=== PATIENT | male | born 1970 | race Caucasian/White ===

== ENCOUNTER 2017-02-13 11:47 | Emergency (ER) | payer SELFPAY ==
[~2017-02-13] VITALS: Ht 160 cm; Wt 67.6 kg
--- NOTE | 2017-02-13 11:48 | NUR ---
PT BIB FRIEND C/O BILATERAL UPPER AND LOWER EXTREMITIES PITTING EDEMA. +ETOH DRUNK . AMBULATORY STEADY GAIT. PLACED ON MONITOR. VSS. AWAITING MD ORDER
--- NOTE | 2017-02-13 12:15 | NUR ---
Was seen independently by myself. Subjective: Patient presents with chronic lower extremity swelling and upper extremity swelling in the setting of a patient of his alcohol everyday. Objective: Patient is drunk. He has 2+ edema both lower extremities with no evidence of obvious congestive heart failure Assessment/plan: Patient will have labs checked with likely outpatient followup for alcohol related concerns with possible diuretic.
--- NOTE | 2017-02-13 12:26 | NUR ---
LAC #18 IV ACCESS. BLOOD SAMPLE COLLECTED SENT TO LAB
[2017-02-13 12:28] LABS: BASOPHILS % (AUTO) 0.4 % (0.0-2.0); EOSINOPHILS # (AUTO) 0.2 /CMM (0.0-0.7); EOSINOPHILS % (AUTO) 3.7 % (0.0-6.0); HEMATOCRIT 38 % (39-51); HEMOGLOBIN 13.3 g/dL (13.5-17.5); LYMPHOCYTES % (AUTO) 42.1 % (20.0-44.0); MEAN CORPUSCULAR HEMOGLOBIN 33 PG (26.0-33.0); MEAN CORPUSCULAR HGB CONC 35 g/dl (31.0-36.0); MEAN CORPUSCULAR VOLUME 96 fL (80-96); MONOCYTES # (AUTO) 0.6 /CMM (0.1-1.30); MONOCYTES % (AUTO) 11.7 % (2.0-12.0); NEUTROPHILS % (AUTO) 42.1 % (43.0-81.0); PLATELET COUNT (AUTO) 159 /CMM (150-450); RDW COEFFICIENT OF VARIATION 13.1 (11.5-15.0); RED BLOOD CELL COUNT(AUTO) 3.98 MIL/uL (4.5-6.0); WHITE BLOOD COUNT (AUTO) 4.8 K/uL (4.3-11.0)
--- NOTE | 2017-02-13 12:35 | NUR ---
URINE SAMPLE COLLECTED SENT TO LAB
[2017-02-13 12:39] LABS: CALCIUM, SERUM 8.7 mg/dL (8.5-10.1); CREATININE 0.6 mg/dL (0.6-1.3)
[2017-02-13 12:45] LABS: ALBUMIN 4.1 g/dL (3.4-5.0); BILIRUBIN,DIRECT 0.1 mg/dL (0.0-0.2); BILIRUBIN,TOTAL 0.3 mg/dL (0.2-1.0); TOTAL PROTEIN, SERUM 8.3 g/dL (6.4-8.2)
[2017-02-13 12:48] LABS: INR 0.96 (0.87-1.13); PROTHROMBIN TIME 10.3 SECS (9.5-12.7)
[2017-02-13] MEDS ORDERED: FUROSEMIDE 20 MG TABLET ONE ×2 (12:57→13:01)
--- NOTE | 2017-02-13 13:07 | NUR ---
Patient discharged to home in stable condition. Written and verbal after care instructions given. Patient verbalizes understanding of instruction. IV removed. Catheter intact and site benign. Pressure and 4x4 applied to site. No bleeding noted. AMBULATORY WITH STEADY GAIT. NAD NOTED. FIRST DOSE OF LASIX GIVEN ORDERED. THOROUGH INSTRUCTIONS REVIEWED WITH PT WITH CONTAINER PACKER OPERATOR.
[2017-02-13 13:09] VITALS: BP 139/86
[2017-02-13 13:20] LABS: APPEARANCE,URINE Clear (CLEAR); BILIRUBIN,URINE Negative (NEGATIVE); BLOOD, URINE Trace-lysed Ery/uL (NEGATIVE); COLOR,URINE Yellow (YELLOW); KETONES,URINE Negative (NEGATIVE); LEUKOCYTE ESTERASE ,URINE Negative (NEGATIVE); NITRITE, URINE Negative (NEGATIVE); PH,URINE 5.5 (5.0-8.0); PROTEIN,URINE Trace mg/dl (NEGATIVE); UGLUCOSE Negative (NEGATIVE); UROBILINOGEN,URINE 0.2 EU/dL (0.2)
[2017-02-13] MEDS ORDERED: FUROSEMIDE 20 MG TABLET PO ONE (13:30)
[2017-02-13 13:36] LABS: ADD URINE CULTURE NO; BACTERIA,URINE Rare /HPF (None Seen); RBC,URINE 0-2 /HPF (0-2); SQUAMOUS EPITHELIAL CELL,UR Rare /HPF (None Seen); WBC,URINE 0-2 /HPF (0-3)
== END 2017-02-13 13:10 | disposition home or self-care (01) ==
LOC: EDUNIT# 11:47 → EDBD 11:51 → ER 11:51
DX: R60.0 Localized edema (principal); I50.9 Heart failure, unspecified; F10.10 Alcohol abuse, uncomplicated
CPT/HCPCS: 36415; 71010; 80048; 80076; 81001; 85025; 85730; 93005; 99285; A4606; Z7610; 81000-TC

== ENCOUNTER 2017-02-21 14:59 | Emergency (ER) | payer SELFPAY ==
[~2017-02-21] VITALS: Ht 157.5 cm; Wt 72.6 kg
[2017-02-21] MEDS ORDERED: AMOX/CLAVULANATE 875 MG TABLET ONE (15:31)
[2017-02-21 15:41] VITALS: BP 145/81
== END 2017-02-21 16:13 | disposition home or self-care (01) ==
LOC: ER 15:01
DX: R20.8 Other disturbances of skin sensation (principal); I10 Essential (primary) hypertension; F17.200 Nicotine dependence, unspecified, uncomplicated
CPT/HCPCS: 99281; A4606; Z7610; Z7502

== ENCOUNTER 2017-03-18 06:24 | Emergency (ER) | payer SELFPAY ==
[~2017-03-18] VITALS: Ht 165.1 cm; Wt 64.4 kg
[2017-03-18] MEDS ORDERED: IBUPROFEN 400 MG TABLET ONE (06:47)
--- NOTE | 2017-03-18 06:49 | NUR ---
PT IS REFUSING ALL TREATMENT. DR. KATZ IS AWARE.
[2017-03-18 06:59] VITALS: BP 153/114
[2017-03-18] MEDS ORDERED: IBUPROFEN 400 MG TABLET PO ONE (07:00)
[2017-03-18] MEDS ORDERED: IV NS 0.9% 500 ML BAG IV ONE (07:00)
== END 2017-03-18 07:02 | disposition home or self-care (01) ==
LOC: ER 06:26
DX: M79.89 Other specified soft tissue disorders (principal); I10 Essential (primary) hypertension; F17.200 Nicotine dependence, unspecified, uncomplicated
CPT/HCPCS: A4606; Z7610

== ENCOUNTER 2017-04-24 22:30 | Emergency (ER) | payer SELFPAY ==
[~2017-04-24] VITALS: Ht 172.7 cm; Wt 86.2 kg
[2017-04-24 23:33] VITALS: BP 142/81
--- NOTE | 2017-04-24 23:45 | NUR ---
CALLED PATIENTS NAME NOT IN WAITING ROOM
--- NOTE | 2017-04-25 00:05 | NUR ---
CALLED PATIENTS NAME NOT IN WAITING ROOM
--- NOTE | 2017-04-25 02:35 | NUR ---
PATIENT LEFT WITHOUT BEING SEEN
== END 2017-04-25 02:36 | disposition left against medical advice (07) ==
LOC: ER 22:31
DX: Z53.21 Procedure and treatment not carried out due to patient leaving prior to being seen by health care provider (principal)
CPT/HCPCS: A4606; Z7610

== ENCOUNTER 2017-09-10 15:02 | Emergency (ER) | payer MEDICAID ==
[~2017-09-10] VITALS: Ht 157.5 cm; Wt 81.6 kg
[2017-09-10 15:31] VITALS: BP 143/88
[2017-09-10 16:05] LABS: BASOPHILS # (AUTO) 0.1 /CMM (0.0-0.2); BASOPHILS % (AUTO) 1.1 % (0.0-2.0); EOSINOPHILS # (AUTO) 0.2 /CMM (0.0-0.7); EOSINOPHILS % (AUTO) 2.4 % (0.0-6.0); HEMATOCRIT 34 % (39-51); HEMOGLOBIN 11.9 g/dL (13.5-17.5); LYMPHOCYTES # (AUTO) 1.8 /CMM (0.8-4.8); LYMPHOCYTES % (AUTO) 24.7 % (20.0-44.0); MEAN CORPUSCULAR HEMOGLOBIN 35 PG (26.0-33.0); MEAN CORPUSCULAR HGB CONC 35 g/dl (31.0-36.0); MEAN CORPUSCULAR VOLUME 100 fL (80-96); MONOCYTES # (AUTO) 0.6 /CMM (0.1-1.30); MONOCYTES % (AUTO) 8.5 % (2.0-12.0); NEUTROPHILS # (AUTO) 4.7 /CMM (1.8-8.9); NEUTROPHILS % (AUTO) 63.3 % (43.0-81.0); PLATELET COUNT (AUTO) 151 /CMM (150-450); RED BLOOD CELL COUNT(AUTO) 3.41 MIL/uL (4.5-6.0); WHITE BLOOD COUNT (AUTO) 7.4 K/uL (4.3-11.0)
[2017-09-10 16:11] LABS: CALCIUM, SERUM 8.9 mg/dL (8.5-10.1); CARBON DIOXIDE 27 mmol/L (21-32); CHLORIDE 104 mmol/L (98-107); CREATININE 0.5 mg/dL (0.6-1.3); GLUCOSE 111 mg/dL (74-106); POTASSIUM 3.7 mmol/L (3.5-5.1); SODIUM SERUM 142 mmol/L (136-145); UREA NITROGEN, BLOOD 5 mg/dL (7-18)
[2017-09-10 16:16] LABS: INR 0.95 (0.87-1.13); PROTHROMBIN TIME 9.9 SECS (9.5-12.7)
[2017-09-10 16:20] LABS: TROPONIN I < 0.017 ng/mL (0.00-0.056)
== END 2017-09-10 16:50 | disposition home or self-care (01) ==
LOC: ER 15:05
DX: R53.1 Weakness (principal); I10 Essential (primary) hypertension; F17.200 Nicotine dependence, unspecified, uncomplicated; R79.1 Abnormal coagulation profile
CPT/HCPCS: 36415; 71010; 80048; 84484; 85025; 85730; 93005; 99285; A4606; Z7610

== ENCOUNTER 2017-10-07 14:20 | Emergency (ER) | payer MEDICAID ==
[~2017-10-07] VITALS: Ht 165.1 cm; Wt 68.0 kg
--- NOTE | 2017-10-07 14:20 | NUR ---
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 WEAKNESS AND TINGLING FEELING HEAD PALPITATIONS, NAD NOTED, VSS, PT PUT ON HOSPITAL GOWN, AND MONITOR. WAITING FOR MD SANDOVAL
--- NOTE | 2017-10-07 14:54 | NUR ---
PT TO CTSCAN
[2017-10-07 14:58] LABS: CALCIUM, SERUM 8.6 mg/dL (8.5-10.1); CARBON DIOXIDE 27 mmol/L (21-32); CHLORIDE 98 mmol/L (98-107); CREATININE 0.5 mg/dL (0.6-1.3); GLUCOSE 133 mg/dL (74-106); POTASSIUM 3.4 mmol/L (3.5-5.1); SODIUM SERUM 134 mmol/L (136-145); UREA NITROGEN, BLOOD 4 mg/dL (7-18)
[2017-10-07 15:01] LABS: INR 0.95 (0.87-1.13); PROTHROMBIN TIME 9.9 SECS (9.5-12.7)
[2017-10-07 15:06] LABS: TROPONIN I < 0.017 ng/mL (0.00-0.056)
[2017-10-07 15:07] LABS: BASOPHILS # (AUTO) 0.1 /CMM (0.0-0.2); BASOPHILS % (AUTO) 1.8 % (0.0-2.0); EOSINOPHILS # (AUTO) 0.2 /CMM (0.0-0.7); EOSINOPHILS % (AUTO) 3.7 % (0.0-6.0); HEMATOCRIT 35 % (39-51); HEMOGLOBIN 11.9 g/dL (13.5-17.5); LYMPHOCYTES # (AUTO) 2.3 /CMM (0.8-4.8); LYMPHOCYTES % (AUTO) 38.5 % (20.0-44.0); MEAN CORPUSCULAR HEMOGLOBIN 34 PG (26.0-33.0); MEAN CORPUSCULAR HGB CONC 34 g/dl (31.0-36.0); MEAN CORPUSCULAR VOLUME 101 fL (80-96); MONOCYTES # (AUTO) 0.7 /CMM (0.1-1.30); MONOCYTES % (AUTO) 11.9 % (2.0-12.0); NEUTROPHILS # (AUTO) 2.6 /CMM (1.8-8.9); NEUTROPHILS % (AUTO) 44.1 % (43.0-81.0); PLATELET COUNT (AUTO) 175 /CMM (150-450); RDW COEFFICIENT OF VARIATION 12.3 (11.5-15.0); RED BLOOD CELL COUNT(AUTO) 3.49 MIL/uL (4.5-6.0)
[2017-10-07 16:24] LABS: ALBUMIN 3.9 g/dL (3.4-5.0); BILIRUBIN,DIRECT 0.1 mg/dL (0.0-0.2); BILIRUBIN,TOTAL 0.4 mg/dL (0.2-1.0); TOTAL PROTEIN, SERUM 8.2 g/dL (6.4-8.2)
[2017-10-07 16:35] VITALS: BP 127/70
--- NOTE | 2017-10-07 16:40 | NUR ---
Patient discharged to home in stable condition. Written and verbal after care instructions given. Patient verbalizes understanding of instruction.IV removed. Catheter intact and site benign. Pressure and 4x4 applied to site. No bleeding noted.
== END 2017-10-07 16:37 | disposition home or self-care (01) ==
LOC: ER 14:25
DX: R53.1 Weakness (principal); R00.2 Palpitations; R51 Headache; H53.8 Other visual disturbances; F10.10 Alcohol abuse, uncomplicated; R79.1 Abnormal coagulation profile; I10 Essential (primary) hypertension; F17.200 Nicotine dependence, unspecified, uncomplicated
CPT/HCPCS: 36415; 70450; 71010; 80048; 80076; 82962; 84484; 85025; 85730; 93005; 99285; A4606; Z7610

== ENCOUNTER 2017-12-30 18:31 | Emergency (ER) | payer MEDICAID ==
[~2017-12-30] VITALS: Ht 172.7 cm; Wt 77.1 kg
--- NOTE | 2017-12-30 19:28 | NUR ---
CALLED NO ANSWER IN LOBBY
[2017-12-30 19:31] VITALS: BP 142/75
== END 2017-12-30 23:24 | disposition left against medical advice (07) ==
LOC: ER 18:33
DX: Z53.21 Procedure and treatment not carried out due to patient leaving prior to being seen by health care provider (principal)
CPT/HCPCS: A4606; Z7610

== ENCOUNTER 2018-01-31 12:26 | Emergency (ER) | payer MEDICAID ==
[~2018-01-31] VITALS: Ht 167.6 cm; Wt 66.7 kg
[2018-01-31 12:51] VITALS: BP 154/107
[2018-01-31] MEDS ORDERED: ONDANSETRON 4 MG TAB.RAPDIS ONE (13:11)
[2018-01-31] MEDS ORDERED: ONDANSETRON 4 MG TAB.RAPDIS SL ONE (13:30)
== END 2018-01-31 13:39 | disposition home or self-care (01) ==
LOC: ER 12:27
DX: R11.2 Nausea with vomiting, unspecified (principal); I10 Essential (primary) hypertension; F10.10 Alcohol abuse, uncomplicated; F17.200 Nicotine dependence, unspecified, uncomplicated
CPT/HCPCS: 99282; A4606; Q0162; Z7610

== ENCOUNTER 2018-03-18 00:17 | Inpatient (IN) | payer MEDICAID ==
[~2018-03-18] VITALS: Ht 162.6 cm; Wt 59.0 kg
--- NOTE | 2018-03-18 00:23 | NUR ---
PT TO ER BED 14. BIB RA C/O SYNCOPE W/GLF BITTING TONGUE. UNKNOWN IF PT HIT HIS HEAD. PT PLACED IN GOWN AND ON COMMANDING OFFICER MOTORIZED SQUAD. VSS/RESP EVEN UNLABORED/NAD NOTED/SKIN WARM AND DRY/DENIES N-V-D/ AFEBRILE/AOX4. AWAITING MD SANDOVAL.
--- NOTE | 2018-03-18 00:40 | NUR ---
AT BEDSIDE FOR EVAL.
--- NOTE | 2018-03-18 00:55 | NUR ---
18G IV TO L AC X 1 ATTEMPT USING ASEPTIC TECH, BLOOD HANDED OVER TO THE LAB AT BEDSIDE. IV FLUSHES EASILY WITH NS, NO S/S OF INFILTRATION NOTED.
--- NOTE | 2018-03-18 00:58 | NUR ---
PT TO CT VIA SARAH MIRZA.
[2018-03-18] MEDS ORDERED: IV NS 0.9% 500 ML BAG IV ONE (01:00)
[2018-03-18] MEDS ORDERED: ONDANSETRON HCL/PF 4 MG/2 ML VIAL IVP ONE (01:00)
[2018-03-18] MEDS ORDERED: ONDANSETRON HCL/PF 4 MG/2 ML VIAL ONE (01:08)
[2018-03-18 01:21] LABS: BASOPHILS % (AUTO) 0.1 % (0.0-2.0); EOSINOPHILS % (AUTO) 0.1 % (0.0-6.0); HEMATOCRIT 31 % (39-51); HEMOGLOBIN 10.9 g/dL (13.5-17.5); LYMPHOCYTES # (AUTO) 0.4 /CMM (0.8-4.8); MEAN CORPUSCULAR HGB CONC 36 g/dl (31.0-36.0); MEAN CORPUSCULAR VOLUME 97 fL (80-96); MONOCYTES # (AUTO) 1.1 /CMM (0.1-1.30); MONOCYTES % (AUTO) 12.4 % (2.0-12.0); NEUTROPHILS # (AUTO) 7.6 /CMM (1.8-8.9); NEUTROPHILS % (AUTO) 83.4 % (43.0-81.0); PLATELET COUNT (AUTO) 116 /CMM (150-450); RDW COEFFICIENT OF VARIATION 11.8 (11.5-15.0); RED BLOOD CELL COUNT(AUTO) 3.15 MIL/uL (4.5-6.0); WHITE BLOOD COUNT (AUTO) 9.1 K/uL (4.3-11.0)
--- NOTE | 2018-03-18 01:21 | NUR ---
EMT AT BEDSIDE FOR EKG.
[2018-03-18 01:27] LABS: INR 1.07 (0.87-1.13)
[2018-03-18 01:33] LABS: TROPONIN I < 0.017 ng/mL (0.00-0.056)
[2018-03-18 01:34] LABS: ALANINE AMINOTRANSFERASE 93 U/L (12-78); ALBUMIN 3.9 g/dL (3.4-5.0); ALKALINE PHOSPHATASE 110 U/L (46-116); ASPARTATE AMINOTRANSFERASE 106 U/L (15-37); BILIRUBIN,DIRECT 0.6 mg/dL (0.0-0.2); BILIRUBIN,TOTAL 2.5 mg/dL (0.2-1.0); CALCIUM, SERUM 9.2 mg/dL (8.5-10.1); CHLORIDE 91 mmol/L (98-107); GLUCOSE 138 mg/dL (74-106); POTASSIUM 3.2 mmol/L (3.5-5.1); SODIUM SERUM 129 mmol/L (136-145); TOTAL PROTEIN, SERUM 7.9 g/dL (6.4-8.2); UREA NITROGEN, BLOOD 15 mg/dL (7-18)
[2018-03-18 01:39] LABS: CARBON DIOXIDE 27 mmol/L (21-32); CREATININE 0.7 mg/dL (0.6-1.3)
--- NOTE | 2018-03-18 02:17 | NUR ---
REPORT GIVEN TO JAMES TORRES FOR ZULEIMA.
[2018-03-18] MEDS ORDERED: AZITHROMYCIN 250 MG TABLET PO SCH (02:30)
[2018-03-18] MEDS ORDERED: CEFTRIAXONE 1GM BAG (ER ONLY) 1 GM/50 ML PIGGYBACK IV ONE (02:30)
[2018-03-18] MEDS ORDERED: CEFTRIAXONE 1 G VIAL ONE (02:44)
[2018-03-18] MEDS ORDERED: AZITHROMYCIN 500 MG VIAL ONE (02:44)
[2018-03-18] MEDS ORDERED: AZITHROMYCIN 500 MG in IV D5W 250 ML IV SCH (03:00)
--- NOTE | 2018-03-18 03:25 | NUR ---
COMMERCIAL DESIGNER NOTE RECEIVED PATIENT FROM ER RECEIVED REPORT FROM NERY, PATIENT IS AOX3, SPEECH CLEAR, SWISS SPEAKING, ON BEDREST, SCROTUM SWELLING, AND LEFT FINGER TAG, LAC #18G, PATENT FLUSHES WELL, NO PAIN REPORTED CURRENTLY, STATES TONGUE SORENESS. 100% ON RA, EDUCATED CERTIFIED MEETING PROFESSIONAL LIGHT USE AND SAFETY, BED ALARMS IN PLACE DUE TO WEAKNESS. SAFETY MAINTAINED AT ALL TIMES BED IN LOW LOCKED POSITION, WILL CONTINUE TO MONITOR FOR ANY CHANGES IN CONDITION.
--- NOTE | 2018-03-18 03:32 | NUR ---
PT TRANSPORTED VIA STRETCHER ON [employer] TO TELE 117-2 WITH RN PER ACLS PROTOCOL. VSS.
[2018-03-18 03:44] VITALS: BP 160/88
[2018-03-18 04:00] VITALS: BP 160/88
[2018-03-18] MEDS ORDERED: ACETAMINOPHEN 650 MG/SUPP.RECT RC PRN (06:30)
[2018-03-18] MEDS ORDERED: ONDANSETRON HCL/PF 4 MG/2 ML VIAL IVP PRN (06:30)
[2018-03-18] MEDS ORDERED: MORPHINE SULFATE INJ 2 MG/ML DISP.SYRIN IV PRN (06:30)
[2018-03-18] MEDS ORDERED: CLONIDINE HCL 0.1 MG TABLET PO PRN (06:30)
--- NOTE | 2018-03-18 07:40 | NUR ---
RN NOTE RECEIVED PATIENT IN BED AWAKE ALERT AND ORIENTED X3, HE IS ABLE TO RESPOND IN HIS [place] LANGUAGE (TAMAZIGHT). HE IS ABLE TO VERBALIZE NEEDS. NO DISTRESS OR DISCOMFORT NOTED AT THIS TIME. ON TRACK REPAIR WORKER SINUS RHYTHM HR OF 78. LEFT AC IV SITE INTACT AND PATENT. HEAD OF BED ELEVATED FOR COMFORT. PROVIDED COMFORT AND SAFETY MEASURES. BED LOW AND LOCKED POSITION. PLACED CALL LIGHT WITHIN REACH. WILL CONTINUE TO MONITOR AND ATTEND PATIENTS NEEDS.
[2018-03-18] MEDS: PANTOPRAZOLE 40 MG TABLET.DR PO SCH (07:41)
[2018-03-18 08:00] VITALS: BP 152/89
[2018-03-18 08:03] LABS: BASOPHILS % (AUTO) 0.2 % (0.0-2.0); EOSINOPHILS % (AUTO) 0.2 % (0.0-6.0); HEMATOCRIT 31 % (39-51); HEMOGLOBIN 11.1 g/dL (13.5-17.5); LYMPHOCYTES # (AUTO) 0.6 /CMM (0.8-4.8); MEAN CORPUSCULAR HGB CONC 36 g/dl (31.0-36.0); MEAN CORPUSCULAR VOLUME 97 fL (80-96); MONOCYTES # (AUTO) 1.1 /CMM (0.1-1.30); MONOCYTES % (AUTO) 13.2 % (2.0-12.0); NEUTROPHILS # (AUTO) 6.7 /CMM (1.8-8.9); NEUTROPHILS % (AUTO) 79.4 % (43.0-81.0); PLATELET COUNT (AUTO) 111 /CMM (150-450); RDW COEFFICIENT OF VARIATION 11.9 (11.5-15.0); RED BLOOD CELL COUNT(AUTO) 3.21 MIL/uL (4.5-6.0); WHITE BLOOD COUNT (AUTO) 8.4 K/uL (4.3-11.0)
[2018-03-18 08:12] LABS: CALCIUM, SERUM 9.2 mg/dL (8.5-10.1); CARBON DIOXIDE 31 mmol/L (21-32); CHLORIDE 97 mmol/L (98-107); CREATININE 0.6 mg/dL (0.6-1.3); GLUCOSE 107 mg/dL (74-106); POTASSIUM 3.1 mmol/L (3.5-5.1); SODIUM SERUM 135 mmol/L (136-145); UREA NITROGEN, BLOOD 10 mg/dL (7-18)
[2018-03-18 08:16] LABS: CHOLESTEROL 240 mg/dL (<200); HDL CHOLESTEROL 141 mg/dL (40-60); LDL 85 mg/dL (0-99); TRIGLYCERIDES 46 mg/dL (30-150)
[2018-03-18 08:18] LABS: TROPONIN I < 0.017 ng/mL (0.00-0.056)
[2018-03-18 08:23] LABS: ALANINE AMINOTRANSFERASE 77 U/L (12-78); ALBUMIN 3.7 g/dL (3.4-5.0); ALKALINE PHOSPHATASE 104 U/L (46-116); ASPARTATE AMINOTRANSFERASE 93 U/L (15-37); BILIRUBIN,TOTAL 1.7 mg/dL (0.2-1.0); LIPASE 273 U/L (73-393); MAGNESIUM 1.7 mg/dL (1.8-2.4); PHOSPHORUS 3.4 mg/dL (2.5-4.9); TOTAL PROTEIN, SERUM 7.6 g/dL (6.4-8.2)
[2018-03-18] MEDS: Magnesium 1GM/D5W 100ML PREMIX 100 ML IV SCH ×2 (10:43→11:44)
[2018-03-18 12:00] VITALS: BP 144/78
[2018-03-18] MEDS ORDERED: POTASSIUM CHLORIDE 20 MEQ POWDER PACKET PO ONE ×2 (13:00)
[2018-03-18 16:00] VITALS: BP 123/75
[2018-03-18] MEDS: LISINOPRIL (5MG) 5 MG TABLET PO SCH (16:27)
--- NOTE | 2018-03-18 18:59 | NUR ---
RN NOTE PATIENT REMAINED STABLE THROUGHOUT SHIFT. NO ACUTE CHANGES OR DISTRESS NOTED. WILL ENDORSE TO NEXT SHIFT TO CONTINUE CONTINUITY OF CARE
[2018-03-18 20:00] VITALS: BP 130/84
--- NOTE | 2018-03-18 20:00 | NUR ---
RN INITIAL NOTE RECEIVED PATIENT IN BED AWAKE ALERT AND ORIENTED X3,TUNISIAN SPEAKING. HE IS ABLE TO VERBALIZE NEEDS. NO DISTRESS OR DISCOMFORT NOTED AT THIS TIME. ON MULTIFOCAL LENS ASSEMBLER SINUS RHYTHM HR OF 78. LEFT AC IV SITE INTACT AND PATENT. HEAD OF BED ELEVATED FOR COMFORT. PROVIDED COMFORT AND SAFETY MEASURES. BED LOW AND LOCKED POSITION. PLACED CALL LIGHT WITHIN REACH. WILL CONTINUE TO MONITOR AND ATTEND PATIENTS NEEDS.
[2018-03-18] MEDS ORDERED: ZOLPIDEM TARTRATE 5 MG TABLET PO PRN (21:00)
[2018-03-19] VITALS: BP 130/84
[2018-03-19] MEDS: CEFTRIAXONE 1 G in IV D5W 50 ML IV SCH (01:20)
[2018-03-19] MEDS ORDERED: AZITHROMYCIN 500 MG in IV D5W 250 ML IV SCH (03:00)
[2018-03-19 04:00] VITALS: BP 150/90
--- NOTE | 2018-03-19 06:51 | NUR ---
RN CLOSING NOTE PATIENT BECAME MORE CONFUSED OVER NIGHT, HE STARTED WONDERING THE NIXON. PT WAS MOVED CLOSER TO RN STATION FOR SAFETY. PT DEVELOPED A RASH ON HANH ARMS. WILL ENDORSE TO NEXT SHIFT TO CONTINUE CONTINUITY OF CARE
[2018-03-19] MEDS: PANTOPRAZOLE 40 MG TABLET.DR PO SCH (07:48)
[2018-03-19 08:00] VITALS: BP 159/86
[2018-03-19] MEDS: LISINOPRIL (5MG) 5 MG TABLET PO SCH (08:02)
[2018-03-19] MEDS: LORAZEPAM INJ 2 MG/ML VIAL IV PRN ×2 (08:05→16:25)
[2018-03-19 08:08] LABS: BASOPHILS # (AUTO) 0.1 /CMM (0.0-0.2); BASOPHILS % (AUTO) 0.9 % (0.0-2.0); EOSINOPHILS % (AUTO) 1.9 % (0.0-6.0); HEMATOCRIT 30 % (39-51); HEMOGLOBIN 10.5 g/dL (13.5-17.5); LYMPHOCYTES # (AUTO) 0.8 /CMM (0.8-4.8); LYMPHOCYTES % (AUTO) 13.5 % (20.0-44.0); MEAN CORPUSCULAR HGB CONC 35 g/dl (31.0-36.0); MEAN CORPUSCULAR VOLUME 98 fL (80-96); MONOCYTES # (AUTO) 0.9 /CMM (0.1-1.30); MONOCYTES % (AUTO) 14.8 % (2.0-12.0); NEUTROPHILS # (AUTO) 4.2 /CMM (1.8-8.9); NEUTROPHILS % (AUTO) 68.9 % (43.0-81.0); PLATELET COUNT (AUTO) 120 /CMM (150-450); RDW COEFFICIENT OF VARIATION 12.2 (11.5-15.0); RED BLOOD CELL COUNT(AUTO) 3.08 MIL/uL (4.5-6.0); WHITE BLOOD COUNT (AUTO) 6.2 K/uL (4.3-11.0)
[2018-03-19 08:24] LABS: CALCIUM, SERUM 8.3 mg/dL (8.5-10.1); CREATININE 0.6 mg/dL (0.6-1.3); MAGNESIUM 1.8 mg/dL (1.8-2.4); PHOSPHORUS 2.4 mg/dL (2.5-4.9); POTASSIUM 3.1 mmol/L (3.5-5.1)
--- NOTE | 2018-03-19 09:00 | NUR ---
RN NOTE RELAYED MESSAGE TO RITA LARIOS ABOUT PATIENT REACTION OF ROCEPHIN ON PATIENT BILATERAL ARMS. AWAITING FOR CALL BACK.
--- NOTE | 2018-03-19 09:53 | NUR ---
RN NOTE RECEIVED PATIENT IN BED AWAKE ALERT AND ORIENTED WITH EPISODES OF CONFUSION AND FORGETFULNESS, HE IS ABLE TO RESPOND IN HIS [place] LANGUAGE (TOGOLESE). NO DISTRESS OR DISCOMFORT NOTED AT THIS TIME. ON LACQUER SHADER SINUS RHYTHM HR OF 83. LEFT AC IV SITE INTACT AND PATENT. HEAD OF BED ELEVATED FOR COMFORT. PROVIDED COMFORT AND SAFETY MEASURES. BED LOW AND LOCKED POSITION. BED ALARM IN PLACE AND WORKING. PLACED CALL LIGHT WITHIN REACH. WILL CONTINUE TO MONITOR AND ATTEND PATIENTS NEEDS.
[2018-03-19] MEDS ORDERED: diphenhydrAMINE HCL 50 MG/ML VIAL IV PRN (10:00)
--- NOTE | 2018-03-19 10:06 | NUR ---
RN NOTE RECEIVED NEW ORDERS BENADRYL 25MG IV Q6H PRN. CARRIED OUT AND NOTED.
--- NOTE | 2018-03-19 10:45 | NUR ---
RN NOTE PATIENT NOTED WITH WITHDRAWALS, PATIENT IS BEING COMBATIVE AND AGGRESSIVE. PATIENT REMOVED HIS IV, NOTIFIED RITA LARIOS WITH NEW ORDER ACUTE MEDICAL SOFT RESTRAINTS FOR BOTH WRIST. WELL RECHECK CIRCULATION, AND REMOVAL OF RESTRAINTS Q2H. WILL CONTINUE TO MONITOR
[2018-03-19] MEDS ORDERED: LORAZEPAM INJ 2 MG/ML VIAL IV ONE (12:00)
[2018-03-19] MEDS ORDERED: POTASSIUM CHLORIDE 20 MEQ POWDER PACKET PO ONE (12:30)
[2018-03-19] MEDS: CHLORDIAZEPOXIDE HCL 25 MG CAPSULE PO SCH ×2 (13:18→20:58)
[2018-03-19] MEDS: FOLIC ACID 1 MG TABLET PO SCH (13:19)
[2018-03-19] MEDS ORDERED: HALOPERIDOL LACTATE INJ 5 MG/ML VIAL IM ONE (13:30)
--- NOTE | 2018-03-19 13:30 | NUR ---
RN NOTE PATIENT STILL NOTED WITH AGGRESSIVENESS, CURRENTLY WITH SOFT RESTRAINTS IN PLACE. REPLAYED PATIENT STATUS TO HERMILA LARIOS, SEEN BY HERMILA LARIOS WITH NEW ORDERS: HALDOL 5MG IM X1, LIBRIUM Q8H ORDERS WERE CARRIED AND NOTED.
--- NOTE | 2018-03-19 13:54 | NUR ---
TRIED TO PERFORM ECHO STUDY BUT PATIENT IS AGGRESSIVE AND UNCOOPERATIVE. PER JOHN (JAMES), TRY TOMORROW.
[2018-03-19] MEDS ORDERED: K PHOS NEUTRAL 250 MG TABLET PO ONE (14:00)
--- NOTE | 2018-03-19 14:30 | NUR ---
RN NOTE AFTER HALDOL IM GIVEN, PATIENT SEEMS RELAXED, CALM, AND ASLEEP. WILL CONTINUE TO MONITOR.
[2018-03-19 16:00] VITALS: BP 131/82
[2018-03-19] MEDS: LACTOBACILLUS RHAMNOSUS GG 1 EACH CAP.SPRINK PO SCH (16:37)
--- NOTE | 2018-03-19 19:19 | NUR ---
RN NOTE PATIENT REMAINED STABLE THROUGHOUT THE REST OF SHIFT. NO EPISODE OF AGGRESSIVENESS OR BEING UNCOOPERATIVE. ECHOCARDIOGRAM WILL BE PERFORMED TOMORROW IN THE AM, THE TECH COULD NOT PREFORM THE ECHO TODAY DUE TO PATENT BEING AGGRESSIVE AND UNCOOPERATIVE. WILL ENDORSE TO NEXT SHIFT TO CONTINUE CONTINUITY OF CARE
[2018-03-19 20:00] VITALS: BP 144/85
[2018-03-19] MEDS ORDERED: HALOPERIDOL LACTATE INJ 5 MG/ML VIAL IM PRN (21:00)
[2018-03-20] VITALS: BP 137/78
[2018-03-20] MEDS: CEFTRIAXONE 1 G in IV D5W 50 ML IV SCH (01:20)
[2018-03-20 04:00] VITALS: BP 124/79
[2018-03-20] MEDS: CHLORDIAZEPOXIDE HCL 25 MG CAPSULE PO SCH ×3 (05:11→20:13)
--- NOTE | 2018-03-20 07:41 | NUR ---
RN NOTES RECEIVED PT FROM HVAC SHEET METAL INSTALLER, A&0X1-2 CONFUSED ONLY AUSTRIAN SPEAKING, ON 2L NC WITH NO SOB OR DISTRESS NOTED. SR ON THE TELE ESTHER HR 90S. KAYODE IV SITE INTACT WITH IVF AT 80ML/HR. SITTER AT BEDSIDE FOR SAFETY. BED LOCKED AND IN LOWEST POSITION, CALL LIGHT WITHIN REACH, SIDE RAILS UPX3, WILL CONT TO ESTHER.
[2018-03-20 07:55] LABS: CALCIUM, SERUM 8.8 mg/dL (8.5-10.1); CREATININE 0.5 mg/dL (0.6-1.3); MAGNESIUM 1.9 mg/dL (1.8-2.4); PHOSPHORUS 4.5 mg/dL (2.5-4.9); POTASSIUM 3.3 mmol/L (3.5-5.1)
[2018-03-20 08:00] VITALS: BP 129/93
[2018-03-20] MEDS: PANTOPRAZOLE 40 MG TABLET.DR PO SCH (08:46)
[2018-03-20] MEDS: LACTOBACILLUS RHAMNOSUS GG 1 EACH CAP.SPRINK PO SCH ×2 (08:46→17:16)
[2018-03-20] MEDS: FOLIC ACID 1 MG TABLET PO SCH (08:46)
[2018-03-20] MEDS: LISINOPRIL (5MG) 5 MG TABLET PO SCH (08:46)
[2018-03-20] MEDS: THIAMINE HCL 100 MG TABLET PO SCH (08:47)
[2018-03-20 08:56] LABS: HEMATOCRIT 32 % (39-51); HEMOGLOBIN 10.9 g/dL (13.5-17.5); MEAN CORPUSCULAR HGB CONC 35 g/dl (31.0-36.0); MEAN CORPUSCULAR VOLUME 98 fL (80-96); PLATELET COUNT (AUTO) 160 /CMM (150-450); RED BLOOD CELL COUNT(AUTO) 3.22 MIL/uL (4.5-6.0); WHITE BLOOD COUNT (AUTO) 6.4 K/uL (4.3-11.0)
--- NOTE | 2018-03-20 11:40 | NUR ---
MICHAEL consult requested by HERMILA Lala for ETOH abuse. Pt. is a 47 year old male who was admitted to [facility] for syncope. MICHAEL met with pt. bedside. Pt. is Wolof speaking. SW with assistance from a polymer scientist assessed the pt. Pt. is alert and oriented x 3. Pt. states he resides with his brother Delfin at [address] [place] [address]. [place] . His brother Delfin is his emergency contact. Pt. states he drinks approximately 5 to 6 beers per day sometimes more, it depends. Pt. has no history of attending an alcohol treatment program. MICHAEL offered pt. referrals to alcohol treatment programs both inpatient and outpatient, however pt. declined. Pt. to be discharged back home to his brother Delfin once medically cleared. Pt's RN has been notified of discharge plan. No other social service needs are required at this time. SW is available, if needed.
[2018-03-20 12:00] VITALS: BP 141/82
[2018-03-20 12:07] LABS: EOSINOPHILS % (MANUAL) 1 % (0-4); LYMPHOCYTES % (MANUAL) 25 % (16-48); MONOCYTES % (MANUAL) 12 % (0-11.0); NEUTROPHILS % (MANUAL) 62 (42-76)
[2018-03-20 16:00] VITALS: BP 143/86
--- NOTE | 2018-03-20 19:30 | NUR ---
RN/TELE NOTES: RECEIVED PT. IN BED SLEEPING W/ RESPIRATIONS EVEN AND UNLABORED. DENIES ANY C/O CHEST PAIN RO SOB AT PRESENT.PT. ALERT AND ORIENTED X 2 W/ PERIODS OF CONFUSION AND FORGETFULNESS. MOSTLY IRAQI SPEAKING ONLY. ON TELE MONITOR W/ SR @ 84. LEFT AC IV SITE PATENT AND INTACT W/ NO S/S OF INFECTION/INFILTRATION NOTED. CONTINENT OF B/B. AMBULATE TO THE BATHROOM. ALL NEEDS MEET. WILL CONTINUE TO MONITOR.
[2018-03-20 20:00] VITALS: BP 119/69
[2018-03-21] VITALS: BP 125/74
[2018-03-21] MEDS: CEFTRIAXONE 1 G in IV D5W 50 ML IV SCH (01:09)
[2018-03-21 04:00] VITALS: BP 139/86
[2018-03-21] MEDS: CHLORDIAZEPOXIDE HCL 25 MG CAPSULE PO SCH ×2 (04:20→13:54)
[2018-03-21 06:51] LABS: CALCIUM, SERUM 9.2 mg/dL (8.5-10.1); CREATININE 0.6 mg/dL (0.6-1.3); MAGNESIUM 1.6 mg/dL (1.8-2.4); PHOSPHORUS 4.7 mg/dL (2.5-4.9); POTASSIUM 3.5 mmol/L (3.5-5.1)
[2018-03-21 06:56] LABS: HEMATOCRIT 32 % (39-51); MEAN CORPUSCULAR HGB CONC 35 g/dl (31.0-36.0); MEAN CORPUSCULAR VOLUME 99 fL (80-96); PLATELET COUNT (AUTO) 188 /CMM (150-450); RED BLOOD CELL COUNT(AUTO) 3.19 MIL/uL (4.5-6.0)
--- NOTE | 2018-03-21 07:21 | NUR ---
RN/TELE NOTES: REPORT GIVEN TO AM NURSE FOR ZULEIMA .
[2018-03-21 08:00] VITALS: BP_SYST 139; BP_SYST 156; BP_DIAS 86; BP_DIAS 89
[2018-03-21] MEDS: LACTOBACILLUS RHAMNOSUS GG 1 EACH CAP.SPRINK PO SCH (08:36)
[2018-03-21] MEDS: THIAMINE HCL 100 MG TABLET PO SCH (08:37)
[2018-03-21] MEDS: FOLIC ACID 1 MG TABLET PO SCH (08:37)
[2018-03-21] MEDS: LISINOPRIL (5MG) 5 MG TABLET PO SCH (08:37)
[2018-03-21] MEDS: PANTOPRAZOLE 40 MG TABLET.DR PO SCH (08:37)
[2018-03-21 09:20] LABS: BASOPHILS % (MANUAL) 1 % (0.0-2.0); EOSINOPHILS % (MANUAL) 7 % (0-4); LYMPHOCYTES % (MANUAL) 20 % (16-48); MONOCYTES % (MANUAL) 14 % (0-11.0); NEUTROPHILS % (MANUAL) 58 (42-76)
[2018-03-21] MEDS ORDERED: FENTANYL PF 100MCG/2ML AMPUL IV PRN (10:30)
[2018-03-21] MEDS: Magnesium 1GM/D5W 100ML PREMIX 100 ML IV SCH ×2 (10:40→13:54)
[2018-03-21 12:00] VITALS: BP 144/83
[2018-03-21] MEDS ORDERED: FOLI1TAB16 PO (14:51)
[2018-03-21] MEDS ORDERED: CHLO25CA22 PO (14:51)
[2018-03-21] MEDS ORDERED: THIA100T13 PO (14:51)
--- NOTE | 2018-03-21 16:07 | NUR ---
SW received a call from pt's RN Giorgio requesting a verification of admission letter per pt's request. SW completed the letter and gave it to her to give to the pt.
== END 2018-03-21 16:02 | disposition home or self-care (01) | DRG 775 ==
LOC: ER 00:18 → TELE1 02:13 → MEDSG1 03-19 08:30 → TELE1 03-19 20:39
PROVIDERS: ADMIT Internal Medicine; ATTEND Nurse Practitioner Acute Care
DX: F10.239 Alcohol dependence with withdrawal, unspecified (principal); N17.0 Acute kidney failure with tubular necrosis; J69.0 Pneumonitis due to inhalation of food and vomit; G40.509 Epileptic seizures related to external causes, not intractable, without status epilepticus; E87.1 Hypo-osmolality and hyponatremia; K76.0 Fatty (change of) liver, not elsewhere classified; E83.42 Hypomagnesemia; E86.0 Dehydration; E87.6 Hypokalemia; Y90.0 Blood alcohol level of less than 20 mg/100 ml; F32.9 Major depressive disorder, single episode, unspecified
CPT/HCPCS: 36415; 70450-TC; 71045-TC; 72125-TC; 76705-TC; 80048-TC; 80053-TC; 80061-TC; 80076-TC; 80305; 82962-TC; 83605-TC; 83690-TC; 83735-TC; 84100-TC; 84484-TC; 85025-TC; 85730-TC; 86850-TC; 87040-TC; 87081-TC; 93307-TC; A4606; G0480; J0456; J0696; J1200; J1630; J2060; J2405; J3010; J3475; J3480; J3490; J7040; J7050; J7060; Z7610

== ENCOUNTER 2018-04-04 22:39 | Emergency (ER) | payer MEDICAID ==
[~2018-04-04] VITALS: Ht 165.1 cm; Wt 68.0 kg
[~2018-04-04 22:39] MED LIST: CHLO25CA22 PO; FOLI1TAB16 PO; THIA100T13 PO
--- NOTE | 2018-04-04 23:27 | NUR ---
CALLED PT IN [place], NO RESPONSE
--- NOTE | 2018-04-05 02:13 | NUR ---
PT AMBULATED TO BED #10 WITH A STEADY GAIT.
--- NOTE | 2018-04-05 02:41 | NUR ---
PT D/C'D TO THE LOBBY WITH A STEADY GAIT. Patient discharged to home in stable condition. Written and verbal after care instructions given. Patient verbalizes understanding of instruction. PT STATED THAT HE WANTED TO STAY IN THE LOBBY FOR A LITTLE BIT AND THEN WALK HOME. VSS. NAD NOTED. PT REC'D AN RX. RESP EVEN AND UNLABORED.
[2018-04-05 02:45] VITALS: BP 138/75
== END 2018-04-05 02:40 | disposition home or self-care (01) ==
LOC: ER 22:39
DX: K12.0 Recurrent oral aphthae (principal); F10.10 Alcohol abuse, uncomplicated; I10 Essential (primary) hypertension; Z71.6 Tobacco abuse counseling
CPT/HCPCS: A4606; Z7610

== ENCOUNTER 2018-04-06 19:37 | Emergency (ER) | payer MEDICAID ==
[~2018-04-06] VITALS: Ht 160 cm; Wt 68.0 kg
[2018-04-06 19:47] VITALS: BP 129/81
== END 2018-04-06 20:42 | disposition home or self-care (01) ==
LOC: ER 19:52
DX: K12.0 Recurrent oral aphthae (principal); Z76.0 Encounter for issue of repeat prescription; R56.9 Unspecified convulsions; I10 Essential (primary) hypertension; F10.10 Alcohol abuse, uncomplicated; F17.200 Nicotine dependence, unspecified, uncomplicated
CPT/HCPCS: A4606; Z7610

== ENCOUNTER 2018-04-13 21:33 | Emergency (ER) | payer MEDICAID ==
[~2018-04-13] VITALS: Ht 162.6 cm; Wt 76.2 kg
[2018-04-13 22:07] VITALS: BP 132/88
[2018-04-13] MEDS ORDERED: PANTOPRAZOLE 40 MG TABLET.DR PO ONE ×2 (22:49→23:00)
[2018-04-13] MEDS ORDERED: ONDANSETRON 4 MG TAB.RAPDIS ONE (22:49)
[2018-04-13] MEDS ORDERED: ONDANSETRON 4 MG TAB.RAPDIS SL ONE (23:00)
[2018-04-13 23:06] LABS: APPEARANCE,URINE CLEAR (CLEAR); BILIRUBIN,URINE NEGATIVE (NEGATIVE); BLOOD, URINE TRACE Ery/uL (NEGATIVE); COLOR,URINE YELLOW (YELLOW); KETONES,URINE NEGATIVE (NEGATIVE); LEUKOCYTE ESTERASE ,URINE NEGATIVE (NEGATIVE); NITRITE, URINE NEGATIVE (NEGATIVE); PROTEIN,URINE NEGATIVE (NEGATIVE); UGLUCOSE NEGATIVE (NEGATIVE); UROBILINOGEN,URINE 0.2 EU/dL (0.2)
[2018-04-13 23:13] LABS: BASOPHILS % (AUTO) 0.6 % (0.0-2.0); EOSINOPHILS % (AUTO) 6.4 % (0.0-6.0); HEMATOCRIT 34 % (39-51); HEMOGLOBIN 11.8 g/dL (13.5-17.5); LYMPHOCYTES # (AUTO) 2.3 /CMM (0.8-4.8); LYMPHOCYTES % (AUTO) 35.3 % (20.0-44.0); MEAN CORPUSCULAR HGB CONC 35 g/dl (31.0-36.0); MEAN CORPUSCULAR VOLUME 98 fL (80-96); MONOCYTES # (AUTO) 0.8 /CMM (0.1-1.30); MONOCYTES % (AUTO) 11.6 % (2.0-12.0); NEUTROPHILS % (AUTO) 46.1 % (43.0-81.0); PLATELET COUNT (AUTO) 174 /CMM (150-450); RDW COEFFICIENT OF VARIATION 12.7 (11.5-15.0); RED BLOOD CELL COUNT(AUTO) 3.44 MIL/uL (4.5-6.0); WHITE BLOOD COUNT (AUTO) 6.6 K/uL (4.3-11.0)
[2018-04-13 23:18] LABS: BACTERIA,URINE Rare /HPF (None Seen); RBC,URINE 0-2 /HPF (0-2); SQUAMOUS EPITHELIAL CELL,UR Rare /HPF (None Seen); WBC,URINE 0-2 /HPF (0-3)
[2018-04-13 23:26] LABS: CALCIUM, SERUM 8.8 mg/dL (8.5-10.1); CREATININE 0.7 mg/dL (0.6-1.3); MAGNESIUM 1.9 mg/dL (1.8-2.4); POTASSIUM 3.4 mmol/L (3.5-5.1)
[2018-04-13 23:31] LABS: ALBUMIN 3.6 g/dL (3.4-5.0); BILIRUBIN,DIRECT 0.1 mg/dL (0.0-0.2); BILIRUBIN,TOTAL 0.3 mg/dL (0.2-1.0)
[2018-04-13] MEDS ORDERED: POTASSIUM CHLORIDE 20 MEQ TAB.PRT.SR PO ONE (23:59)
[2018-04-14] MEDS ORDERED: POTASSIUM CHLORIDE 20 MEQ TAB.PRT.SR PO ONE
== END 2018-04-14 00:09 | disposition home or self-care (01) ==
LOC: ER 21:38
DX: R10.12 Left upper quadrant pain (principal); G89.29 Other chronic pain; F10.10 Alcohol abuse, uncomplicated; D64.9 Anemia, unspecified; E87.6 Hypokalemia; E78.5 Hyperlipidemia, unspecified; F32.9 Major depressive disorder, single episode, unspecified; I10 Essential (primary) hypertension; F17.200 Nicotine dependence, unspecified, uncomplicated
CPT/HCPCS: 36415; 80048; 80076; 80305; 81001; 83690; 83735; 85025; 99284; A4606; G0480; Q0162; Z7610; 81000-TC

== ENCOUNTER 2018-06-03 20:30 | Emergency (ER) | payer SELFPAY ==
[~2018-06-03] VITALS: Ht 165.1 cm; Wt 68.0 kg
--- NOTE | 2018-06-03 20:38 | NUR ---
PT AMBULATORY TO ER BED 13 C/O NAUSEA NO VOMITING. ADMITS TO DRINKING ALCOHOL TODAY. DENIES PAIN. STABLE VITALS. AWAITING MD SANDOVAL.
--- NOTE | 2018-06-03 20:48 | NUR ---
CAS LANG AT BEDSIDE FOR EVAL.
[2018-06-03] MEDS ORDERED: PANTOPRAZOLE 40 MG VIAL IV ONE (21:00)
[2018-06-03] MEDS ORDERED: IV NS 0.9% 1,000 ML BAG IV ONE ×2 (21:00→22:00)
[2018-06-03] MEDS ORDERED: ACETAMINOPHEN 325 MG TABLET PO ONE (21:00)
[2018-06-03] MEDS ORDERED: ONDANSETRON HCL/PF 4 MG/2 ML VIAL IVP ONE (21:00)
--- NOTE | 2018-06-03 21:00 | NUR ---
IV LINE STARTED BLOOD DRWAN ANS SENT TO LAB.
[2018-06-03] MEDS ORDERED: PANTOPRAZOLE 40 MG VIAL ONE (21:05)
[2018-06-03] MEDS ORDERED: ACETAMINOPHEN ES 500 MG TABLET ONE (21:05)
[2018-06-03] MEDS ORDERED: ONDANSETRON HCL/PF 4 MG/2 ML VIAL ONE (21:05)
[2018-06-03 21:08] LABS: BASOPHILS # (AUTO) 0.1 /CMM (0.0-0.2); BASOPHILS % (AUTO) 1.6 % (0.0-2.0); HEMATOCRIT 33 % (39-51); HEMOGLOBIN 11.9 g/dL (13.5-17.5); LYMPHOCYTES # (AUTO) 2.1 /CMM (0.8-4.8); LYMPHOCYTES % (AUTO) 35.2 % (20.0-44.0); MEAN CORPUSCULAR HEMOGLOBIN 35 PG (26.0-33.0); MEAN CORPUSCULAR HGB CONC 36 g/dl (31.0-36.0); MEAN CORPUSCULAR VOLUME 97 fL (80-96); MONOCYTES # (AUTO) 0.5 /CMM (0.1-1.30); MONOCYTES % (AUTO) 9.3 % (2.0-12.0); NEUTROPHILS % (AUTO) 50.9 % (43.0-81.0); PLATELET COUNT (AUTO) 238 /CMM (150-450); RDW COEFFICIENT OF VARIATION 12.1 (11.5-15.0); RED BLOOD CELL COUNT(AUTO) 3.43 MIL/uL (4.5-6.0); WHITE BLOOD COUNT (AUTO) 5.9 K/uL (4.3-11.0)
[2018-06-03 21:19] LABS: CREATININE 0.6 mg/dL (0.6-1.3); POTASSIUM 3.5 mmol/L (3.5-5.1)
[2018-06-03 21:27] LABS: BILIRUBIN,DIRECT 0.2 mg/dL (0.0-0.2); BILIRUBIN,TOTAL 0.4 mg/dL (0.2-1.0)
[2018-06-03 21:28] LABS: ALBUMIN 3.8 g/dL (3.4-5.0); TOTAL PROTEIN, SERUM 7.9 g/dL (6.4-8.2)
[2018-06-03 23:18] VITALS: BP 128/76
== END 2018-06-03 23:20 | disposition home or self-care (01) ==
LOC: ER 20:33
DX: F10.20 Alcohol dependence, uncomplicated (principal); E86.0 Dehydration; R11.0 Nausea; R79.89 Other specified abnormal findings of blood chemistry; I10 Essential (primary) hypertension; E87.6 Hypokalemia; F17.200 Nicotine dependence, unspecified, uncomplicated
CPT/HCPCS: 36415; 80048-TC; 80076-TC; 83690-TC; 85025-TC; A4606; C9113; J2405; J7030; Z7610

== ENCOUNTER 2018-06-23 14:15 | Emergency (ER) | payer SELFPAY ==
[~2018-06-23] VITALS: Ht 162.6 cm; Wt 59.4 kg
--- NOTE | 2018-06-23 14:17 | NUR ---
PT SELF PRESENTS TO ER BED 15 C/O DIFFUSE ABDOMINAL PAIN W/ NAUSEA AND VOMITING X 10 DAYS. PT ALSO ENDORSES LOSS OF APETTITE. PT HAS STRONG ETOH SMELL KEY FILER. SEEN IN ER COOUPLE OF TIME FOR ETOH RELATED VISITS. VSS. AWAITING MD SANDOVAL.
--- NOTE | 2018-06-23 15:12 | NUR ---
DHARA MANUFACTURING ENGINEER AT BEDSIDE FOR EVAL.
--- NOTE | 2018-06-23 15:20 | NUR ---
LAB TECHA T BEDSIDE FOR BLOOD DRAW.
[2018-06-23] MEDS ORDERED: ONDANSETRON HCL/PF 4 MG/2 ML VIAL ONE (15:29)
[2018-06-23] MEDS ORDERED: ONDANSETRON HCL/PF 4 MG/2 ML VIAL IV ONE (15:30)
[2018-06-23] MEDS ORDERED: IV NS 0.9% 1,000 ML BAG IV ONE (15:30)
[2018-06-23 15:32] LABS: HEMATOCRIT 34 % (39-51); HEMOGLOBIN 11.8 g/dL (13.5-17.5); MEAN CORPUSCULAR HEMOGLOBIN 33 PG (26.0-33.0); MEAN CORPUSCULAR HGB CONC 34 g/dl (31.0-36.0); MEAN CORPUSCULAR VOLUME 97 fL (80-96); PLATELET COUNT (AUTO) 144 /CMM (150-450); RDW COEFFICIENT OF VARIATION 12.5 (11.5-15.0); RED BLOOD CELL COUNT(AUTO) 3.56 MIL/uL (4.5-6.0); WHITE BLOOD COUNT (AUTO) 4.5 K/uL (4.3-11.0)
[2018-06-23 15:37] LABS: APPEARANCE,URINE Clear (CLEAR); BILIRUBIN,URINE Negative (NEGATIVE); BLOOD, URINE Trace-lysed Ery/uL (NEGATIVE); COLOR,URINE Yellow (YELLOW); KETONES,URINE Negative (NEGATIVE); LEUKOCYTE ESTERASE ,URINE Negative (NEGATIVE); NITRITE, URINE Negative (NEGATIVE); PH,URINE 5.5 (5.0-8.0); PROTEIN,URINE Negative (NEGATIVE); UGLUCOSE Negative (NEGATIVE); UROBILINOGEN,URINE 0.2 EU/dL (0.2)
[2018-06-23 15:39] LABS: CALCIUM, SERUM 8.8 mg/dL (8.5-10.1); CREATININE 0.5 mg/dL (0.6-1.3); POTASSIUM 3.3 mmol/L (3.5-5.1)
[2018-06-23 15:43] LABS: ALBUMIN 3.9 g/dL (3.4-5.0); BILIRUBIN,DIRECT 0.3 mg/dL (0.0-0.2); BILIRUBIN,TOTAL 0.9 mg/dL (0.2-1.0); TOTAL PROTEIN, SERUM 8.1 g/dL (6.4-8.2)
[2018-06-23 15:47] LABS: BACTERIA,URINE None seen /HPF (None Seen); SQUAMOUS EPITHELIAL CELL,UR Few /HPF (None Seen); WBC,URINE 0-3 /HPF (0-3)
[2018-06-23 17:07] VITALS: BP 135/80
[2018-06-23 17:10] LABS: BAND % (MANUAL) 3 % (0.0-5.0); EOSINOPHILS % (MANUAL) 6 % (0-4); LYMPHOCYTES % (MANUAL) 26 % (16-48); MONOCYTES % (MANUAL) 9 % (0-11.0); NEUTROPHILS % (MANUAL) 56 (42-76)
== END 2018-06-23 17:08 | disposition home or self-care (01) ==
LOC: ER 14:35
DX: K29.20 Alcoholic gastritis without bleeding (principal); F10.10 Alcohol abuse, uncomplicated; I10 Essential (primary) hypertension; F17.200 Nicotine dependence, unspecified, uncomplicated; E87.6 Hypokalemia; Z79.899 Other long term (current) drug therapy; Y90.8 Blood alcohol level of 240 mg/100 ml or more
CPT/HCPCS: 36415; 80048; 80076; 81001; 83690; 85025; 85730; 96361; 96374; 99284; A4606; G0480; J2405; J7030; Z7610; 81000-TC

== ENCOUNTER 2018-07-06 08:41 | Emergency (ER) | payer SELFPAY ==
[~2018-07-06] VITALS: Ht 162.6 cm; Wt 59.4 kg
[2018-07-06 08:51] VITALS: BP 138/101
== END 2018-07-06 14:31 | disposition home or self-care (01) ==
LOC: ER 08:43
DX: R53.1 Weakness (principal); I10 Essential (primary) hypertension; F10.10 Alcohol abuse, uncomplicated; Y90.9 Presence of alcohol in blood, level not specified; F17.200 Nicotine dependence, unspecified, uncomplicated
CPT/HCPCS: 99281; A4606; Z7610; Z7502

== ENCOUNTER 2018-07-13 17:15 | Emergency (ER) | payer SELFPAY ==
[~2018-07-13] VITALS: Ht 152.4 cm; Wt 70.3 kg
--- NOTE | 2018-07-13 17:30 | NUR ---
BIB RA C/O 1CM LAC TO FOREHEAD S/P FALL AT HOME, ETOH NOTED ON BREATH SMELL. NOTED WITH TREMORS. SEEN BY PA FOR EVAL. SAFETY AND COMFORT MEASURES PROVIDED. WILL MONITOR.
[2018-07-13 17:48] LABS: HEMATOCRIT 34 % (39-51); HEMOGLOBIN 11.9 g/dL (13.5-17.5); MEAN CORPUSCULAR HEMOGLOBIN 33 PG (26.0-33.0); MEAN CORPUSCULAR HGB CONC 35 g/dl (31.0-36.0); MEAN CORPUSCULAR VOLUME 96 fL (80-96); PLATELET COUNT (AUTO) 168 /CMM (150-450); RDW COEFFICIENT OF VARIATION 13.5 (11.5-15.0); RED BLOOD CELL COUNT(AUTO) 3.56 MIL/uL (4.5-6.0); WHITE BLOOD COUNT (AUTO) 7.6 K/uL (4.3-11.0)
--- NOTE | 2018-07-13 18:00 | NUR ---
UNABLE TO DO CT SCAN PT WAS THROWING UP. PA AWARE. ORDERS CARRIED OUT.
--- NOTE | 2018-07-13 18:03 | NUR ---
PT IS VOMITING, TOOK BACK TO ER. ER WILL CALL BACK.
[2018-07-13 18:04] LABS: CALCIUM, SERUM 9.7 mg/dL (8.5-10.1); CARBON DIOXIDE 24 mmol/L (21-32); CHLORIDE 97 mmol/L (98-107); CREATININE 1.1 mg/dL (0.6-1.3); GLUCOSE 190 mg/dL (74-106); POTASSIUM 3.8 mmol/L (3.5-5.1); SODIUM SERUM 136 mmol/L (136-145); UREA NITROGEN, BLOOD 11 mg/dL (7-18)
[2018-07-13] MEDS ORDERED: ONDANSETRON HCL/PF 4 MG/2 ML VIAL ONE (18:04)
[2018-07-13 18:07] LABS: TROPONIN I < 0.017 ng/mL (0.00-0.056)
[2018-07-13 18:09] LABS: ALANINE AMINOTRANSFERASE 96 U/L (12-78); ALBUMIN 4.2 g/dL (3.4-5.0); ALKALINE PHOSPHATASE 144 U/L (46-116); ASPARTATE AMINOTRANSFERASE 172 U/L (15-37); BILIRUBIN,DIRECT 0.8 mg/dL (0.0-0.2); BILIRUBIN,TOTAL 2.5 mg/dL (0.2-1.0); TOTAL PROTEIN, SERUM 8.5 g/dL (6.4-8.2)
[2018-07-13 18:27] LABS: ALCOHOL, BLOOD < 3 mg/dL (0-0); MAGNESIUM 2.2 mg/dL (1.8-2.4)
[2018-07-13] MEDS ORDERED: ONDANSETRON HCL/PF 4 MG/2 ML VIAL IV ONE (18:30)
[2018-07-13 18:32] LABS: BAND % (MANUAL) 16 % (0.0-5.0); LYMPHOCYTES % (MANUAL) 13 % (16-48); MONOCYTES % (MANUAL) 5 % (0-11.0); NEUTROPHILS % (MANUAL) 66 (42-76)
[2018-07-13] MEDS ORDERED: KETOROLAC TROMETHAMINE INJ 30 MG/ML VIAL IV ONE (19:00)
[2018-07-13] MEDS ORDERED: LORAZEPAM INJ 2 MG/ML VIAL IV ONE (19:00)
[2018-07-13] MEDS ORDERED: LORAZEPAM INJ 2 MG/ML VIAL ONE (19:01)
[2018-07-13] MEDS ORDERED: KETOROLAC TROMETHAMINE INJ 30 MG/ML VIAL ONE (19:01)
[2018-07-13 19:36] LABS: APPEARANCE,URINE CLEAR (CLEAR); BILIRUBIN,URINE 1+ (NEGATIVE); BLOOD, URINE TRACE-INTA Ery/uL (NEGATIVE); COLOR,URINE DARK YELLO (YELLOW); KETONES,URINE 1+ (NEGATIVE); LEUKOCYTE ESTERASE ,URINE NEGATIVE (NEGATIVE); NITRITE, URINE NEGATIVE (NEGATIVE); PH,URINE 6.5 (5.0-8.0); PROTEIN,URINE 3+ mg/dl (NEGATIVE); UGLUCOSE TRACE mg/dL (NEGATIVE)
--- NOTE | 2018-07-13 19:57 | NUR ---
PT RESTING COMFORTABLY IN HOSPITAL BED. VSS. NAD. STABLE CONDITION. SAFETY MEASURES IN PLACE. CALL LIGHT WITHIN REACH.
[2018-07-13 20:39] LABS: WBC,URINE 0-2 /HPF (0-3)
[2018-07-13 20:40] LABS: BACTERIA,URINE Few /HPF (None Seen); MUCUS,URINE Few /LPF (None Seen); SQUAMOUS EPITHELIAL CELL,UR Few /HPF (None Seen)
[2018-07-13] MEDS ORDERED: TDAP [DIPH/PERTUSSIS/TET] 0.5 ML VIAL IM ONE ×2 (20:54→21:00)
--- NOTE | 2018-07-13 21:05 | NUR ---
Patient discharged to home in stable condition. Written and verbal after care instructions given. Patient verbalizes understanding of instruction.IV removed. Catheter intact and site benign. Pressure and 4x4 applied to site. No bleeding noted. AMBULATED WITH STEADY GAIT UPON DC. INSTRUCTED NOT TO OPERATE OR DRIVE HEAVY MACHINERY
[2018-07-13 21:08] VITALS: BP 160/98
== END 2018-07-13 21:10 | disposition home or self-care (01) ==
LOC: ER 17:16
DX: S01.01XA Laceration without foreign body of scalp, initial encounter (principal); I10 Essential (primary) hypertension; F17.200 Nicotine dependence, unspecified, uncomplicated; F10.10 Alcohol abuse, uncomplicated; Z79.899 Other long term (current) drug therapy; W18.39XA Other fall on same level, initial encounter; Y93.89 Activity, other specified; Y92.098 Other place in other non-institutional residence as the place of occurrence of the external cause; Y99.8 Other external cause status
CPT/HCPCS: 12002; 36415; 70450; 70486; 71045; 72125; 80048; 80076; 80305; 81001; 82962; 83735; 84484; 85025; 85730; 90471; 90715; 93005; 96374; 96375; 99285; A4606; A6403; G0480; J1885; J2060; J2405; Z7610; 81000-TC

== ENCOUNTER 2018-07-16 07:32 | Inpatient (IN) | payer MEDICAID ==
[~2018-07-16] VITALS: Ht 154.9 cm; Wt 70.3 kg
--- NOTE | 2018-07-16 07:43 | NUR ---
BB SELF WITH C/O SEVERE ABDOMINAL PAIN W/ NAUSEA AND VOMITING. PT HAS A H/O OF ALCHOLISM, HE SAID THE LAST TIME HE HAD ALCOHOL WAS 4 DAYS AGO. C/O 08/30 PAIN. ACTIVELY VOMITING AT THIS TIME. ASSISTED TO ED BED 12. AMBULATORY IN A STEADY GAIT. ALL NEEDS ARE ATTENDED. WILL CONT TO MONITOR
--- NOTE | 2018-07-16 07:52 | NUR ---
PT WAS SEEN AND EVALUATED BY DR. BHATTI
[2018-07-16] MEDS ORDERED: LORAZEPAM INJ 2 MG/ML VIAL ONE (07:53)
[2018-07-16] MEDS ORDERED: MORPHINE SULFATE INJ 4 MG/ML DISP.SYRIN ONE (07:53)
[2018-07-16] MEDS ORDERED: ONDANSETRON HCL/PF 4 MG/2 ML VIAL ONE (07:53)
[2018-07-16] MEDS ORDERED: IV NS 0.9% 500 ML BAG IV ONE (08:00)
[2018-07-16] MEDS ORDERED: ONDANSETRON HCL/PF 4 MG/2 ML VIAL IVP ONE (08:00)
[2018-07-16] MEDS ORDERED: MORPHINE SULFATE INJ 2 MG/ML DISP.SYRIN IV ONE (08:00)
[2018-07-16] MEDS ORDERED: LORAZEPAM INJ 2 MG/ML VIAL IV ONE (08:00)
[2018-07-16] MEDS ORDERED: IV NS 0.9% 1,000 ML BAG IV ONE (08:00)
[2018-07-16 08:17] LABS: HEMOGLOBIN 11.2 g/dL (13.5-17.5); RED BLOOD CELL COUNT(AUTO) 3.35 MIL/uL (4.5-6.0); WHITE BLOOD COUNT (AUTO) 10.1 K/uL (4.3-11.0)
[2018-07-16 08:18] LABS: BASOPHILS % (AUTO) 0.3 % (0.0-2.0); EOSINOPHILS % (AUTO) 0.1 % (0.0-6.0); HEMATOCRIT 34 % (39-51); LYMPHOCYTES # (AUTO) 0.4 /CMM (0.8-4.8); LYMPHOCYTES % (AUTO) 4.3 % (20.0-44.0); MEAN CORPUSCULAR HEMOGLOBIN 33 PG (26.0-33.0); MEAN CORPUSCULAR HGB CONC 33 g/dl (31.0-36.0); MEAN CORPUSCULAR VOLUME 100 fL (80-96); MONOCYTES # (AUTO) 0.8 /CMM (0.1-1.30); MONOCYTES % (AUTO) 7.9 % (2.0-12.0); NEUTROPHILS # (AUTO) 8.8 /CMM (1.8-8.9); NEUTROPHILS % (AUTO) 87.4 % (43.0-81.0); PLATELET COUNT (AUTO) 159 /CMM (150-450); RDW COEFFICIENT OF VARIATION 13.8 (11.5-15.0)
[2018-07-16 08:28] LABS: CALCIUM, SERUM 9.5 mg/dL (8.5-10.1); CARBON DIOXIDE 27 mmol/L (21-32); CHLORIDE 99 mmol/L (98-107); CREATININE 1.3 mg/dL (0.6-1.3); GLUCOSE 251 mg/dL (74-106); POTASSIUM 3.7 mmol/L (3.5-5.1); SODIUM SERUM 137 mmol/L (136-145); UREA NITROGEN, BLOOD 25 mg/dL (7-18)
[2018-07-16 08:34] LABS: ALANINE AMINOTRANSFERASE 73 U/L (12-78); ALBUMIN 4.1 g/dL (3.4-5.0); ALKALINE PHOSPHATASE 133 U/L (46-116); ASPARTATE AMINOTRANSFERASE 81 U/L (15-37); BILIRUBIN,DIRECT 0.6 mg/dL (0.0-0.2); BILIRUBIN,TOTAL 1.5 mg/dL (0.2-1.0); LIPASE 640 U/L (73-393); TOTAL PROTEIN, SERUM 8.3 g/dL (6.4-8.2)
[2018-07-16] MEDS ORDERED: IOHEXOL-300 100 ML VIAL IV ONE (08:47)
[2018-07-16] MEDS ORDERED: CT SWABBABLE VALVE TRANS SET 1 EA INFUS.SET MC ONE (08:47)
[2018-07-16] MEDS ORDERED: IV NS 0.9% 250 ML IV ONE (08:47)
--- NOTE | 2018-07-16 09:40 | NUR ---
DR TROTTER CALLED FOR SX CONSULT
--- NOTE | 2018-07-16 10:29 | NUR ---
REPORT GIVEN TO CODI RAMIREZ FOR ZULEIMA
--- NOTE | 2018-07-16 11:41 | NUR ---
TRANSFERRED TO FLOOR VIA ACLS PROTOCOL
--- NOTE | 2018-07-16 11:50 | NUR ---
RN OPENING NOTE PATIENT IS RECEIVED ON A GURNEY. PATIENT IS TRANSFERRED TO BED. PATIENT ALERT AND ORIENTED X2. IN ROOM AIR AND HE DENIES SOB. RESPIRATION REGULAR AND UNLABORED. COMPLIANT OF ABDOMINAL PAIN IF ABDOMEN IS TOUCHED, OTHERWISE, THE PATIENT DENIES ANY PAIN. PATIENT HAS NG TUBE AT 50 EVAN. RAC G 18 PATENT AND SALINE LOCKED. PATIENT IS ORIENTED TO THE ROOM AND CALL LIGHT. BED LOW AND LOCKED. BED ALARM ON. SIDE RAILS UP X3. CALL LIGHT WITHIN REACH. WILL CONTINUE TO MONITOR.
[2018-07-16] MEDS ORDERED: ZOLPIDEM TARTRATE 5 MG TABLET PO PRN (13:30)
[2018-07-16] MEDS ORDERED: ONDANSETRON HCL/PF 4 MG/2 ML VIAL IVP PRN (13:30)
[2018-07-16] MEDS ORDERED: MORPHINE SULFATE INJ 2 MG/ML DISP.SYRIN IV PRN (13:30)
[2018-07-16] MEDS ORDERED: ACETAMINOPHEN 325 MG TABLET PO PRN (13:30)
[2018-07-16] MEDS ORDERED: MVI-12 10ML IV ONE (13:30)
[2018-07-16] MEDS ORDERED: LORAZEPAM INJ 2 MG/ML VIAL IV PRN (13:30)
[2018-07-16] MEDS ORDERED: Z GUARD REMEDY 2 OZ OINT TP PRN (13:30)
[2018-07-16] MEDS ORDERED: IV NS 0.9% 1,000 ML IV PRN (14:00)
[2018-07-16] MEDS ORDERED: MVI ADULT 10ML VIAL = 1AMP 10 ML in IV NS 0.9% 1,000 ML IV ONE (15:00)
[2018-07-16 16:00] VITALS: BP 158/89
[2018-07-16] MEDS: Thiamine 100 MG in IV D5W 50 ML IV SCH (16:30)
--- NOTE | 2018-07-16 16:30 | NUR ---
MS/RN NOTE THIAMINE 100 IV DUE AT 1400 IS STARTED AT 1630 DUE TO PHARM LATE DELIVERY.
[2018-07-16 17:20] VITALS: BP 138/84
[2018-07-16] MEDS: Folic acid 1 MG in IV D5W 50 ML IV SCH (17:28)
--- NOTE | 2018-07-16 17:30 | NUR ---
MS/RN NOTE FOLIC ACID IV DUE AT 1500 IS STARTED LATE AT 1728 DUE TO PHARM LATE DELIVERY.
--- NOTE | 2018-07-16 17:57 | NUR ---
MS/RN NOTE NEW ORDER IS OBTAINED FROM DR DOMINGUEZ FOR NG TUBE TO BE CONNECTED TO LOW INTERMITTENT SUCTION. READ BACK, VERIFIED. NOTED AND CARRIED OUT
--- NOTE | 2018-07-16 18:01 | NUR ---
MS/RN CLOSING NOTE PATIENT ALERT AND ORIENTED X2 AND SPEAKS PORTUGUESE. REDIRECTION AND REORIENTATION PROVIDED NEEDED. NG TUBE IN PLACE AT 50 EVAN AND CONNECTED TO LOW INTERMITTENT SUCTION. PATIENT WITH NO EPISODE OF TRYING TO PUT THE NG TUBE. PATIENT IN ROOM AND OXYGEN SATURATION AT 97%. DENIES SOB AT THIS TIME. DENIES PAIN AT THIS TIME. PATIENT ABDOMEN TENDER AND PATIENT IS NOTED WITH HYPOACTIVE BOWEL SOUNDS SINCE ADMISSION. RAC G 18 PATENT AND SALINE LOCKED. PATIENT NPO. CONTINENT. BED LOW AND LOCKED. SIDE RAILS UP X3. CALL LIGHT WITHIN REACH. WILL ENDORSE TO SCHOOL ADMINISTRATOR.
--- NOTE | 2018-07-16 19:15 | NUR ---
MS RN NOTES RECEIVED ON BED A/O X2,SPEAK ALGERIAN,NPO STATUS,NGT IN PLACE CONNECTED TO LOW INTERMITTENT SUCTION,DRAINING SCANTY OUTPUT.IVF INFUSING WITH MVI AT 100ML/HR RATE VIA IV PUMP,SITE PATENT ON RIGHT AC.CALL LIGHT IN REACH,NEEDS ANTICIPATED.
[2018-07-16 20:00] VITALS: BP 144/95
--- NOTE | 2018-07-16 22:45 | NUR ---
MS RN NOTES MD VISIT SEEN AND EXAMINED BY DR HERNANDES,SAYS KEPT NPO,CASE MOST LIKELY PANCREATITIS.ORDERED PROTONIX 40MG IV BID NOTED AND CARRIED OUT.
[2018-07-16] MEDS: PANTOPRAZOLE 40 MG VIAL IV SCH (23:24)
--- NOTE | 2018-07-16 23:24 | NUR ---
MS RN NOTES STARTED ON PROTONIX 40MG IV ORDERED
[2018-07-16] MEDS ORDERED: MORPHINE SULFATE INJ 4 MG/ML DISP.SYRIN IV PRN (23:30)
[2018-07-17] MEDS: IV NS 0.9% 1,000 ML IV PRN ×2 (05:47→22:00)
--- NOTE | 2018-07-17 06:00 | NUR ---
MS RN NOTES CALM AND QUIET ON BED THRU OUT SHIFT.OFFERED PAIN MEDICINE BUT REFUSED.CLAIMED PAIN TOLERABLE.KEPT NPO ORDERED.NGT IN PLACE CONNECTED TO WALL LOW INTERMITTENT SUCTION.DRAINS 200ML BROWNISH OUTPUT.IN NO ACUTE DISTRESS.WILL ENDORSE TO DAY NURSE FOR ZULEIMA.
--- NOTE | 2018-07-17 07:20 | NUR ---
RN NOTES RECEIVED PATIENT AWAKE ALERT AND VERBALLY RESPONSIVE NOTED WITH FORGETFULNESS. RESPIRATIONS EVEN AND UNLABORED, PATIENT REPOSITIONED, IN NO APPARENT DISCOMFORT. IV ACCESS TO RAC 18 G PATENT AND INTACT NO REDNESS OR INFILTRATION NOTED.NGT NOTED AT 50CM IN LENGTH, NOTED WITH BROWNISH DRAINAGE, WILL CONTINUE TO MONITOR. KEPT CLEAN DRY AND COMFORTABLE, REORIENTED NEEDED. SAFETY MEASURES IN PLACE, CALL LIGHT WITHIN EASY REACH WILL CONTINUE TO MONITOR
[2018-07-17 08:00] VITALS: BP 153/94
[2018-07-17] MEDS: PANTOPRAZOLE 40 MG VIAL IV SCH ×2 (08:20→16:23)
[2018-07-17] MEDS ORDERED: IV NS 0.9% 1,000 ML BAG IV SCH (09:00)
--- NOTE | 2018-07-17 09:10 | NUR ---
RN NOTES/LOOSE BM PT WITH LOOSE BM STATES HE HAS BEEN HAVING LOOSE BM, NOTED LIQUIDY STOOL NON FOUL SMELLING WILL CONTINUE TO MONITOR AND COLLECT IF CONTINUES
[2018-07-17] MEDS: Thiamine 100 MG in IV D5W 50 ML IV SCH (14:39)
[2018-07-17] MEDS: Folic acid 1 MG in IV D5W 50 ML IV SCH (15:23)
[2018-07-17 16:00] VITALS: BP 158/85
--- NOTE | 2018-07-17 19:21 | NUR ---
RN NOTES PATIENT AWAKE ALERT AND VERBALLY RESPONSIVE NOTED WITH FORGETFULNESS. RESPIRATIONS EVEN AND UNLABORED, PATIENT REPOSITIONED, IN NO APPARENT DISCOMFORT. IV ACCESS TO RAC 20 G PATENT AND INTACT NO REDNESS OR INFILTRATION NOTED.NGT NOTED AT 50CM IN LENGTH, NOTED WITH BROWNISH DRAINAGE, WILL CONTINUE TO MONITOR. KEPT CLEAN DRY AND COMFORTABLE, REORIENTED NEEDED. SAFETY MEASURES IN PLACE, CALL LIGHT WITHIN EASY REACH ENDORSED TO NEXT SHIFT FOR CONTINUITY OF CARE
--- NOTE | 2018-07-17 19:22 | NUR ---
MS RN INITIAL NOTES Received patient, awake on semi-Fowlers position on bed with patent r nares NGT attached to low intermittent suction with reddish drainage @ 350ml level. With IV line RAC G20. Ensured IVF NS infusing well @100ml/hr as ordered. On NPO, no n/v at this time. A/O X3 Icelandic speaking, seemed comfortable on bed. Per AM shift, pt noted with 2x LBM, not in ATB therapy. Will collect stool sample if another LBM noted. Bed locked in low position. Call light at bedside within easy reach. Keep clean and dry. Will continue to monitor.
[2018-07-17 20:00] VITALS: BP 168/90
--- NOTE | 2018-07-18 06:44 | NUR ---
MS RN CLOSING NOTES Patient awake on semi-Fowlers position with patent NGT R nares attached to low intermittent suction with total 500ml output reddish with clots. With patent peripheral IV line RAC G#20 with NS infusing well @ 100ml/hr. No s/s of discomfort noted. No complaints made within the shift. Kept clean, dry and comfortable. All needs attended. Endorsed to the next shift.
[2018-07-18 07:23] LABS: BASOPHILS % (AUTO) 0.1 % (0.0-2.0); EOSINOPHILS % (AUTO) 1.5 % (0.0-6.0); HEMATOCRIT 31 % (39-51); HEMOGLOBIN 10.6 g/dL (13.5-17.5); LYMPHOCYTES # (AUTO) 0.9 /CMM (0.8-4.8); LYMPHOCYTES % (AUTO) 10.1 % (20.0-44.0); MEAN CORPUSCULAR HEMOGLOBIN 34 PG (26.0-33.0); MEAN CORPUSCULAR HGB CONC 34 g/dl (31.0-36.0); MEAN CORPUSCULAR VOLUME 101 fL (80-96); MONOCYTES # (AUTO) 2.1 /CMM (0.1-1.30); NEUTROPHILS # (AUTO) 5.9 /CMM (1.8-8.9); NEUTROPHILS % (AUTO) 65.3 % (43.0-81.0); PLATELET COUNT (AUTO) 163 /CMM (150-450); RDW COEFFICIENT OF VARIATION 13.4 (11.5-15.0); RED BLOOD CELL COUNT(AUTO) 3.09 MIL/uL (4.5-6.0); WHITE BLOOD COUNT (AUTO) 9.1 K/uL (4.3-11.0)
--- NOTE | 2018-07-18 07:30 | NUR ---
RN MS NOTES PT IN BED, AWAKE, ALERT AND ORIENTED, NO COMPLAINT OF ABDOMINAL PAIN, NO NAUSEA OR VOMITING, RESPIRATIONS NORMAL AND NOT LABORED, IV FLUIDS INFUSING WELL, WITH NGT ON SUCTION, PINKISH/REDDISH, CALL LIGHT WITHIN REACH.
[2018-07-18 07:38] LABS: CALCIUM, SERUM 8.8 mg/dL (8.5-10.1); CREATININE 0.7 mg/dL (0.6-1.3); MAGNESIUM 1.7 mg/dL (1.8-2.4); PHOSPHORUS 3.4 mg/dL (2.5-4.9); POTASSIUM 3.3 mmol/L (3.5-5.1)
[2018-07-18 08:00] VITALS: BP 143/78
[2018-07-18] MEDS: IV NS 0.9% 1,000 ML IV PRN (08:23)
[2018-07-18] MEDS: PANTOPRAZOLE 40 MG VIAL IV SCH ×2 (08:23→16:56)
[2018-07-18 08:52] LABS: BAND % (MANUAL) 2 % (0.0-5.0); EOSINOPHILS % (MANUAL) 2 % (0-4); LYMPHOCYTES % (MANUAL) 12 % (16-48); MONOCYTES % (MANUAL) 21 % (0-11.0); NEUTROPHILS % (MANUAL) 63 (42-76)
[2018-07-18] MEDS: POTASSIUM CL. PREMIX PERIPHER. 50 ML IV SCH ×2 (11:47→12:51)
--- NOTE | 2018-07-18 13:00 | NUR ---
RN MS NOTES PT IN BED, AWAKE, ALERT AND ORIENTED, WATCHING TV, DENIES PAIN, NO COMPLAINT OF N/V, NO DIARRHEA, ON NGT WITH INTERMITTENT SUCTION WITH LIGHT PINK SECRETIONS, IV FLUIDS INFUSING WELL, CALL LIGHT WITHIN REACH, NEEDS ATTENDED.
[2018-07-18] MEDS: Magnesium 1GM/D5W 100ML PREMIX 100 ML IV SCH ×2 (14:22→18:16)
[2018-07-18] MEDS: Thiamine 100 MG in IV D5W 50 ML IV SCH (15:45)
[2018-07-18 16:00] VITALS: BP 143/70
[2018-07-18] MEDS: Folic acid 1 MG in IV D5W 50 ML IV SCH (16:53)
--- NOTE | 2018-07-18 18:15 | NUR ---
RN MS NOTES PT IN BED, AWAKE, ALERT AND ORIENTED, NO COMPLAINT OF PAIN OR ANY DISCOMFORT, IV FLUIDS INFUSING WELL, PT SEEN BY DR. CECILIO MD ORDERED TO REMOVE NGT AND START HIM ON CLEAR LIQUID DIET.
--- NOTE | 2018-07-18 19:20 | NUR ---
MS RN INITIAL NOTES Report received at bedside. Patient received in bed, awake, sitting by the edge. Alert and oriented x3, verbally responsive in Cuban language. No SOB/labored breathing noted or reported. Not in any type of distress. IV on right antecubital #20g: patent and intact with NS @100ml/hr running, tolerating well but requested to disconnect IV so he can sit on the chair. Safety measures in place. Bed in locked and lowest position with call light within reach and bed alarm on. Will continue to monitor and assess patient.
[2018-07-18 21:17] VITALS: BP 144/89
[2018-07-19 06:39] LABS: BASOPHILS % (AUTO) 0.4 % (0.0-2.0); EOSINOPHILS % (AUTO) 3.3 % (0.0-6.0); HEMATOCRIT 32 % (39-51); HEMOGLOBIN 10.9 g/dL (13.5-17.5); LYMPHOCYTES # (AUTO) 1.3 /CMM (0.8-4.8); LYMPHOCYTES % (AUTO) 15.9 % (20.0-44.0); MEAN CORPUSCULAR HEMOGLOBIN 34 PG (26.0-33.0); MEAN CORPUSCULAR HGB CONC 34 g/dl (31.0-36.0); MEAN CORPUSCULAR VOLUME 100 fL (80-96); MONOCYTES # (AUTO) 2.1 /CMM (0.1-1.30); NEUTROPHILS # (AUTO) 4.4 /CMM (1.8-8.9); NEUTROPHILS % (AUTO) 54.4 % (43.0-81.0); PLATELET COUNT (AUTO) 178 /CMM (150-450); RDW COEFFICIENT OF VARIATION 13.8 (11.5-15.0); RED BLOOD CELL COUNT(AUTO) 3.18 MIL/uL (4.5-6.0); WHITE BLOOD COUNT (AUTO) 8.1 K/uL (4.3-11.0)
[2018-07-19 07:02] LABS: CALCIUM, SERUM 8.7 mg/dL (8.5-10.1); CREATININE 0.7 mg/dL (0.6-1.3); MAGNESIUM 1.8 mg/dL (1.8-2.4); POTASSIUM 2.9 mmol/L (3.5-5.1)
--- NOTE | 2018-07-19 07:30 | NUR ---
MS NOTES PT IN BED, AWAKE, ALERT AND ORIENTED, NO COMPLAINT OF PAIN OR ANY DISCOMFORT, RESPIRATIONS NORMAL, IV FLUIDS INFUSING WELL, TOLERATES CURRENT DIET WELL, WILL CONTINUE TO MONITOR, NEEDS ATTENDED.
[2018-07-19 08:00] VITALS: BP 148/76
[2018-07-19] MEDS ORDERED: POTASSIUM CHLORIDE 20 MEQ TAB.PRT.SR PO ONE (08:00)
[2018-07-19] MEDS: PANTOPRAZOLE 40 MG VIAL IV SCH ×2 (08:44→16:13)
[2018-07-19] MEDS: POTASSIUM CL. PREMIX PERIPHER. 50 ML IV SCH ×2 (08:45→10:58)
[2018-07-19 09:31] LABS: EOSINOPHILS % (MANUAL) 1 % (0-4); LYMPHOCYTES % (MANUAL) 16 % (16-48); MONOCYTES % (MANUAL) 19 % (0-11.0); NEUTROPHILS % (MANUAL) 64 (42-76)
--- NOTE | 2018-07-19 11:46 | NUR ---
RN MS NOTES PT IN BED, AWAKE, ALERT AND ORIENTED, SEEN BY SLIME BIOCHEMISTRY TECHNOLOGIST, PLAN OF CARE DISCUSSED WITH PT THROUGH A INTERNET MARKETING MANAGER, PT VERBALIZED UNDERSTANDING.
[2018-07-19] MEDS: THIAMINE HCL 100 MG TABLET PO SCH (13:57)
[2018-07-19] MEDS: FOLIC ACID 1 MG TABLET PO SCH (13:57)
[2018-07-19 16:00] VITALS: BP 122/68
[2018-07-19] MEDS: IV NS 0.9% 1,000 ML IV PRN (16:15)
--- NOTE | 2018-07-19 18:30 | NUR ---
RN MS NOTES PT IN BED, AWAKE, ALERT AND ORIENTED, WITH COMPLAINT OF SLIGHT LOWER ABDOMINAL DISCOMFORT, REFUSES ANY PAIN MEDS, NOT IN DISTRESS, ABLE TO AMBULATE WITH STEADY GAIT, PM MEDS GIVEN, TOLERATES CURRENT DIET WELL, ALL NEEDS ATTENDED.
[2018-07-19 20:00] VITALS: BP 126/86
--- NOTE | 2018-07-19 20:00 | NUR ---
MS SENIOR ANDROID SOFTWARE ENGINEER INITIAL NOTES RECEIVED PT IN BED AWAKE AND ALERT WATCHING TV AT THIS TIME WITH IVF OF NS AT 100ML/HR INFUSING ON HIS RIGHT AC PATENT AND INTACT. DENIES ANY PAIN OR ANY DISCOMFORT. PT ALSO AWARE THAT HE WILL BE NPO AFTER MIDNIGHT BECAUSE OF HIS PROCEDURE ENRIQUETA. KEPT HIM WARM AND COMFORTABLE AT ALL TIMES PLACE CALL LIGHT AT REACH. WILL CONTINUE MONITORING .
--- NOTE | 2018-07-20 00:25 | NUR ---
MS STOCK GRADER NOTES PT SLEEPING COMFORTABLY IN BED WITHOUT ANY ACUTE DISTRESS NOTED. KEPT HIM WARM AND COMFORTABLE AT ALL TIMES. PLACE CALL LIGHT AT REACH.
[2018-07-20] MEDS: IV NS 0.9% 1,000 ML IV PRN (06:42)
--- NOTE | 2018-07-20 07:00 | NUR ---
MS SEWING MACHINE OPERATOR FLOORPERSON CLOSING NOTES PT BACK TO REST WITH IVF STILL INFUSING. STABLE EMBER THE NIGHT AND SLEPT WELL. NO SIGNS OF ANY DISCOMFORT NOTED. KEPT HIM WARM AND COMFORTABLE AT ALL TIMES. ENDORSE TO AM NURSE FOR CONTINUITY OF CARE.
--- NOTE | 2018-07-20 07:10 | NUR ---
MS STAGE PRODUCER CLOSING NOTES PT AWAKE AND ALERT WATCHING TV , STABLE EMBER THE NIGHT AND DENIES ANY PAIN OR ANY DISCOMFORT. SLEPT WELL AND
--- NOTE | 2018-07-20 07:15 | NUR ---
MS/RN OPENING NOTE PATIENT IS RECEIVED IN BED AWAKE. ALERT AND ORIENTED X3. DENIES SOB. RESPIRATION REGULAR AND UNLABORED. PATIENT IN ROOM AIR. PATIENT RATED ABDOMINAL PAIN 2/10 BUT REFUSED PATIENT MEDICATION. ABDOMEN ASSESSED. NOTED HYPOACTIVE BOWEL SOUNDS IN ALL 4 QUADS. RAC G 20 PATENT AND IV FLUID INFUSING WITH NO S/S INFILTRATION. BED LOW AND LOCKED. SIDE RAILS UP X3. CALL LIGHT WITHIN REACH. WILL CONTINUE TO MONITOR.
--- NOTE | 2018-07-20 07:15 | NUR ---
WOUND CARE CONSULT WOUND CARE RECEIVED CONSULT FOR ANICETO ON LEFT SIDE OF THE HEAD. WOUND CARE WILL DEFER TO SURGEON WHO IS CURRENTLY FOLLOWING. WILL SEE PRN. PATIENT WITH BAILEE AT 20.
[2018-07-20 07:18] LABS: BASOPHILS % (AUTO) 0.5 % (0.0-2.0); EOSINOPHILS % (AUTO) 4.7 % (0.0-6.0); HEMATOCRIT 31 % (39-51); HEMOGLOBIN 10.6 g/dL (13.5-17.5); LYMPHOCYTES % (AUTO) 18.1 % (20.0-44.0); MEAN CORPUSCULAR HEMOGLOBIN 34 PG (26.0-33.0); MEAN CORPUSCULAR HGB CONC 34 g/dl (31.0-36.0); MEAN CORPUSCULAR VOLUME 100 fL (80-96); MONOCYTES # (AUTO) 1.3 /CMM (0.1-1.30); MONOCYTES % (AUTO) 24.1 % (2.0-12.0); NEUTROPHILS # (AUTO) 2.9 /CMM (1.8-8.9); NEUTROPHILS % (AUTO) 52.6 % (43.0-81.0); PLATELET COUNT (AUTO) 194 /CMM (150-450); RDW COEFFICIENT OF VARIATION 13.7 (11.5-15.0); RED BLOOD CELL COUNT(AUTO) 3.13 MIL/uL (4.5-6.0); WHITE BLOOD COUNT (AUTO) 5.4 K/uL (4.3-11.0)
--- NOTE | 2018-07-20 07:25 | NUR ---
MS/RN OPENING NOTE PATIENT IS RECEIVED IN BED AWAKE. ALERT AND ORIENTED X4. DENIES SOB. RESPIRATION REGULAR AND UNLABORED. PATIENT IN ROOM AIR. DENIES PAIN AT THIS TIME. BED LOW AND LOCKED. SIDE RAILS UP X3. CALL LIGHT WITHIN REACH. WILL CONTINUE TO MONITOR. Addendum: 07/20/18 at 0808 by PRADEEP SANCHEZ RN CHARTED ON WRONG PATIENT.
[2018-07-20 07:26] LABS: CALCIUM, SERUM 8.9 mg/dL (8.5-10.1); CREATININE 0.7 mg/dL (0.6-1.3)
[2018-07-20 07:34] LABS: POTASSIUM 3.9 mmol/L (3.5-5.1)
[2018-07-20 08:00] VITALS: BP_SYST 150; BP_DIAS 81; BP_DIAS 87
[2018-07-20] MEDS: PANTOPRAZOLE 40 MG VIAL IV SCH ×2 (08:25→16:08)
[2018-07-20] MEDS: FOLIC ACID 1 MG TABLET PO SCH (09:00)
[2018-07-20] MEDS: THIAMINE HCL 100 MG TABLET PO SCH (09:00)
[2018-07-20] MEDS ORDERED: DIATR MEGLU/DIATRIZOATE SODIUM 120 ML BOTTLE (GASTROGRAPHIN) ONE (09:17)
[2018-07-20 09:33] LABS: EOSINOPHILS % (MANUAL) 6 % (0-4); LYMPHOCYTES % (MANUAL) 25 % (16-48); MONOCYTES % (MANUAL) 13 % (0-11.0); NEUTROPHILS % (MANUAL) 56 (42-76)
--- NOTE | 2018-07-20 14:39 | NUR ---
MS/RN NOTE BUFFING LINE SET UP WORKER SLIME IS MADE AWARE OF SMALL BOWEL X-RAY WITH NEW ORDER MAY ADVANCE DIET TOLERATED STARTING 07/21/18. READ BACK, VERIFIED. NOTED AND CARRIED OUT.
[2018-07-20 16:00] VITALS: BP 134/81
--- NOTE | 2018-07-20 18:15 | NUR ---
MS/RN CLOSING NOTE PATIENT ALERT AND ORIENTED X3. SPEAKS UZBEK. PATIENT IN ROOM AIR AND DENIES SOB. RESPIRATION REGULAR AND UNLABORED. DENIES PAIN. RAC G 20 PATENT AND IN=V FLUID INFUSING PER ORDER AND NO S/S INFILTRATION NOTED. PATIENT IS CONTINENT ON BOWEL AND BLADDER. TOLERATED CLEAR LIQUID DINNER. WELL. NO COMPLIANT OF NAUSEA AND NO VOMITING NOTED. GOOD AND GENTLE SKIN CARE RENDERED. KEPT CLEAN, DRY AND COMFORTABLE. ALL NEEDS ATTENDED AND ANTICIPATED. BED LOW AND LOCKED. SIDE RAILS UP X3. CALL LIGHT WITHIN REACH. WILL ENDORSE TO TOP INVENTORY CONTROL EXECUTIVE.
--- NOTE | 2018-07-20 19:44 | NUR ---
MS/RN OPENING NOTES PATIENT IN BED, AWAKE, ALERT, X3, YEMENI SPEAKING, ABLE TO FOLLOW SIMPLE COMMANDS, RESPIRATIONS EVEN AND UNLABORED, SKIN WARM TO TOUCH, PAIN CONSTANT, AMBULATORY, NO GRIMACE AND NO GUARDING, PAIN TOLERABLE AND WILL MONITOR.ABLE TO TOLERATE LIQUIRDS WILL MONITOR FOR SAFETY, WITH LEFT LATERAL FOREHEAD ANICETO , IV ON RIGHT AC, WILL MONITOR, CALL LIGHTS WITHIN REACH, BED IN LOCK POSITION, RECEIVED REPORT FROM AM RN FOR ZULEIMA.
[2018-07-20 20:00] VITALS: BP 124/82
[2018-07-21] MEDS: IV NS 0.9% 1,000 ML IV PRN (01:39)
--- NOTE | 2018-07-21 06:40 | NUR ---
325-1 PATIENT IN BED, ABLE TO SLEEP DURING THE NIGHT, CALM AND COOPERATIVE TO CARE, IV ON RIGHT AC PATENT W/ NO S/S OF INFILRATION, WILL ENDORSE TO AM RN FOR ZULEIMA.
[2018-07-21 07:07] LABS: BASOPHILS % (AUTO) 0.3 % (0.0-2.0); EOSINOPHILS % (AUTO) 3.2 % (0.0-6.0); HEMATOCRIT 30 % (39-51); HEMOGLOBIN 10.2 g/dL (13.5-17.5); LYMPHOCYTES % (AUTO) 12.4 % (20.0-44.0); MEAN CORPUSCULAR HEMOGLOBIN 34 PG (26.0-33.0); MEAN CORPUSCULAR HGB CONC 34 g/dl (31.0-36.0); MEAN CORPUSCULAR VOLUME 101 fL (80-96); MONOCYTES # (AUTO) 2.2 /CMM (0.1-1.30); MONOCYTES % (AUTO) 25.4 % (2.0-12.0); NEUTROPHILS % (AUTO) 58.7 % (43.0-81.0); PLATELET COUNT (AUTO) 223 /CMM (150-450); RDW COEFFICIENT OF VARIATION 13.5 (11.5-15.0); RED BLOOD CELL COUNT(AUTO) 2.96 MIL/uL (4.5-6.0); WHITE BLOOD COUNT (AUTO) 8.5 K/uL (4.3-11.0)
[2018-07-21 07:21] LABS: CALCIUM, SERUM 8.1 mg/dL (8.5-10.1); CREATININE 0.7 mg/dL (0.6-1.3); POTASSIUM 2.9 mmol/L (3.5-5.1)
--- NOTE | 2018-07-21 07:27 | NUR ---
RN OPENING NOTES RECEIVED PT. IN BED AWAKE, A&OX3. BREATHING UNLABORED, AND EVENLY ON ROOM AIR. IV FLUIDS RUNNING AT 100 ML/HR. NO S/S OF ACUTE DISTRESS. PT. DOES NOT C/O PAIN. PT. DIET CHANGED TO FULL LIQUIDS, WILL MONITOR. BED IS IN LOWEST, AND LOCKED POSITION. 2 SIDE RAILS UP, AND CALL LIGHT WITHIN REACH. ALL NEEDS MET. WILL CONTINUE TO ASSESS AND MONITOR.
[2018-07-21 08:00] VITALS: BP 132/78
[2018-07-21] MEDS: THIAMINE HCL 100 MG TABLET PO SCH (08:15)
[2018-07-21] MEDS: FOLIC ACID 1 MG TABLET PO SCH (08:15)
[2018-07-21 08:36] LABS: BAND % (MANUAL) 3 % (0.0-5.0); EOSINOPHILS % (MANUAL) 3 % (0-4); LYMPHOCYTES % (MANUAL) 13 % (16-48); MONOCYTES % (MANUAL) 20 % (0-11.0); NEUTROPHILS % (MANUAL) 61 (42-76)
[2018-07-21] MEDS: PANTOPRAZOLE 40 MG VIAL IV SCH (10:13)
[2018-07-21] MEDS: POTASSIUM CHLORIDE 20 MEQ POWDER PACKET PO SCH ×3 (11:38→13:34)
--- NOTE | 2018-07-21 14:00 | NUR ---
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 WAS DISCHARGED IN STABLE CONDITION. DISCHARGE PACKET INSTRUCTIONS WERE PROVIDED WITH EDUCATION. JALEN TRANSLATED FROM [facility] TO [facility]. PT. SIGNED DISCHARGE PAPERS. IV, AND ID BAND WAS REMOVED WITHOUT COMPLICATIONS. BELONGINGS WERE CHECKED, AND SIGNED. PT. SAID THAT HE WANTED TO WALK HOME AND THAT HE LIVES ON [address]. PT. LEFT WITH DISCHARGE PACKET IN HAND AND BELONGINGS. ALL QUESTIONS ANSWERED.
== END 2018-07-21 13:40 | disposition home or self-care (01) | DRG 254 ==
LOC: ER 07:33 → TELE 10:36 → MED 14:38
PROVIDERS: ADMIT Family Medicine; ATTEND Family Medicine
DX: K40.30 Unilateral inguinal hernia, with obstruction, without gangrene, not specified as recurrent (principal); N17.0 Acute kidney failure with tubular necrosis; G92 Toxic encephalopathy; K85.90 Acute pancreatitis without necrosis or infection, unspecified; K56.7 Ileus, unspecified; K57.30 Diverticulosis of large intestine without perforation or abscess without bleeding; E83.42 Hypomagnesemia; E87.6 Hypokalemia; Z79.899 Other long term (current) drug therapy; F10.10 Alcohol abuse, uncomplicated; I10 Essential (primary) hypertension; Z83.3 Family history of diabetes mellitus; Z80.1 Family history of malignant neoplasm of trachea, bronchus and lung
CPT/HCPCS: 36415; 74250-TC; 80048-TC; 80061-TC; 80076-TC; 83605-TC; 83690-TC; 83735-TC; 84100-TC; 85025-TC; 87081-TC; A4606; C9113; J2060; J2270; J2405; J3411; J3475; J3480; J3490; J7030; J7040; J7050; J7060; Q9963; Q9967; Z7610

== ENCOUNTER 2018-07-27 11:22 | Emergency (ER) | payer MEDICAID ==
[~2018-07-27] VITALS: Ht 152.4 cm; Wt 59.4 kg
[2018-07-27 11:38] VITALS: BP 145/87
== END 2018-07-27 12:48 | disposition home or self-care (01) ==
LOC: ER 11:24
DX: S01.81XD Laceration without foreign body of other part of head, subsequent encounter (principal); I10 Essential (primary) hypertension; F17.200 Nicotine dependence, unspecified, uncomplicated; Z87.19 Personal history of other diseases of the digestive system; X58.XXXD Exposure to other specified factors, subsequent encounter
CPT/HCPCS: A4606; Z7502; Z7610

== ENCOUNTER 2019-11-22 15:39 | Emergency (ER) | payer SELFPAY ==
[~2019-11-22] VITALS: Ht 165.1 cm; Wt 68.0 kg
--- NOTE | 2019-11-22 16:03 | NUR ---
BIB SELF FOR CHEST PAIN x 3MOS, WORSE TODAY, NOTED ETOH. Hx OF PALPITATIONS, KNOWN ALCOHOLIC. TO ER BED, PLACED ON THE MONITOR, WILL CONTINUE TO MONITOR THE PATIENT.
[2019-11-22] MEDS ORDERED: ASPIRIN 81 MG TAB.CHEW PO ONE (16:30)
[2019-11-22 16:50] LABS: BASOPHILS # (AUTO) 0.1 /CMM (0.0-0.2); BASOPHILS % (AUTO) 1.3 % (0.0-2.0); EOSINOPHILS % (AUTO) 3.2 % (0.0-6.0); HEMATOCRIT 36 % (39-51); HEMOGLOBIN 12.4 g/dL (13.5-17.5); LYMPHOCYTES # (AUTO) 1.9 /CMM (0.8-4.8); LYMPHOCYTES % (AUTO) 40.5 % (20.0-44.0); MEAN CORPUSCULAR HGB CONC 35 g/dl (31.0-36.0); MEAN CORPUSCULAR VOLUME 99 fL (80-96); MONOCYTES # (AUTO) 0.6 /CMM (0.1-1.30); MONOCYTES % (AUTO) 11.5 % (2.0-12.0); NEUTROPHILS # (AUTO) 2.1 /CMM (1.8-8.9); NEUTROPHILS % (AUTO) 43.5 % (43.0-81.0); PLATELET COUNT (AUTO) 199 /CMM (150-450); RED BLOOD CELL COUNT(AUTO) 3.58 MIL/uL (4.5-6.0); WHITE BLOOD COUNT (AUTO) 4.8 K/uL (4.3-11.0)
[2019-11-22] MEDS ORDERED: ASPIRIN 81 MG TAB.CHEW ONE (17:03)
[2019-11-22 17:04] LABS: CALCIUM, SERUM 8.6 mg/dL (8.5-10.1); CARBON DIOXIDE 29 mmol/L (21-32); CHLORIDE 95 mmol/L (98-107); CREATININE 0.6 mg/dL (0.6-1.3); GLUCOSE 114 mg/dL (74-106); POTASSIUM 3.8 mmol/L (3.5-5.1); SODIUM SERUM 134 mmol/L (136-145); UREA NITROGEN, BLOOD 6 mg/dL (7-18)
[2019-11-22 17:19] LABS: ALANINE AMINOTRANSFERASE 70 U/L (12-78); ALBUMIN 3.8 g/dL (3.4-5.0); ALKALINE PHOSPHATASE 74 U/L (46-116); ASPARTATE AMINOTRANSFERASE 76 U/L (15-37); BILIRUBIN,DIRECT 0.1 mg/dL (0.0-0.2); BILIRUBIN,TOTAL 0.5 mg/dL (0.2-1.0); TOTAL PROTEIN, SERUM 7.5 g/dL (6.4-8.2)
--- NOTE | 2019-11-22 17:26 | NUR ---
PT IS RESTING COMFORTABLY. NO ACUTE DISTRESS NOTED. SAFETY PRECAUTIONS IMPLEMENTED
[2019-11-22] MEDS ORDERED: IV NS 0.9% 1,000 ML BAG IV ONE (17:30)
--- NOTE | 2019-11-22 20:26 | NUR ---
PT IS RESTING COMFORTABLY. NO ACUTE DISTRESS NOTED. SAFETY PRECAUTIONS IMPLEMENTED
--- NOTE | 2019-11-22 20:38 | NUR ---
SITTER AT BEDSIDE FOR SAFETY
--- NOTE | 2019-11-22 23:43 | NUR ---
PT RESTING COMFORTABLY. VSS. NO ACUTE DISTRESS NOTED. SITTER AT BEDSIDE FOR SAFETY
[2019-11-23 01:22] VITALS: BP 141/87
--- NOTE | 2019-11-23 01:22 | NUR ---
Patient discharged to home in stable condition. Written and verbal after care instructions given. Patient verbalizes understanding of instruction.
== END 2019-11-23 01:23 | disposition home or self-care (01) ==
LOC: ER 15:48
DX: F10.129 Alcohol abuse with intoxication, unspecified (principal); R07.89 Other chest pain; E87.8 Other disorders of electrolyte and fluid balance, not elsewhere classified; D53.9 Nutritional anemia, unspecified; I10 Essential (primary) hypertension; F17.200 Nicotine dependence, unspecified, uncomplicated; R11.10 Vomiting, unspecified; Y90.8 Blood alcohol level of 240 mg/100 ml or more
CPT/HCPCS: 36415; 71045; 80048; 80076; 80307; 84484 ×2; 85025; 93005 ×2; 96360; 99284; 99406; J7030; G0480

== ENCOUNTER 2021-10-02 12:17 | Emergency (ER) | payer SELFPAY ==
--- NOTE | 2021-10-02 12:40 | NUR ---
called to triage,no answer
--- NOTE | 2021-10-02 13:11 | NUR ---
called to triage,no answer
--- NOTE | 2021-10-02 14:24 | NUR ---
pt left without being seen.
== END 2021-10-02 14:20 | disposition left against medical advice (07) ==
LOC: ER 13:00
DX: Z53.21 Procedure and treatment not carried out due to patient leaving prior to being seen by health care provider (principal); R10.9 Unspecified abdominal pain

== ENCOUNTER 2021-12-08 10:51 | Emergency (ER) | payer MEDICAID ==
[~2021-12-08] VITALS: Ht 162.6 cm; Wt 70.3 kg
--- NOTE | 2021-12-08 11:58 | NUR ---
dr hanna at bedside for eval.
--- NOTE | 2021-12-08 13:50 | NUR ---
Jerman nettles in [facility] - 12/08/21 at 1612 by SHEYLA director of labor and delivery at bedside for sariahal.
--- NOTE | 2021-12-08 13:50 | NUR ---
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
[2021-12-08 14:11] LABS: BASOPHILS # (AUTO) 0.1 K/uL (0.0-0.2); BASOPHILS % (AUTO) 2.5 % (0.0-2.0); EOSINOPHILS % (AUTO) 4.2 % (0.0-6.0); HEMATOCRIT 36 % (39-51); HEMOGLOBIN 12.7 g/dL (13.5-17.5); LYMPHOCYTES # (AUTO) 1.8 K/uL (0.8-4.8); LYMPHOCYTES % (AUTO) 31.6 % (20.0-44.0); MEAN CORPUSCULAR HGB CONC 35 g/dl (31.0-36.0); MEAN CORPUSCULAR VOLUME 101 fL (80-96); MONOCYTES # (AUTO) 0.5 K/uL (0.1-1.30); MONOCYTES % (AUTO) 9.3 % (2.0-12.0); NEUTROPHILS % (AUTO) 52.4 % (43.0-81.0); PLATELET COUNT (AUTO) 231 K/uL (150-450); RED BLOOD CELL COUNT(AUTO) 3.57 MIL/uL (4.5-6.0); WHITE BLOOD COUNT (AUTO) 5.7 K/uL (4.3-11.0)
[2021-12-08] MEDS ORDERED: MAG HYDROX/AL HYDROX/SIMETH 30 ML UDC ONE (14:14)
[2021-12-08] MEDS ORDERED: LIDOCAINE VISCOUS 2% UD 15 ML UDC ONE (14:14)
--- NOTE | 2021-12-08 14:17 | NUR ---
medicated as ordered see emar.
[2021-12-08 14:24] LABS: CALCIUM, SERUM 8.6 mg/dL (8.5-10.1); CREATININE 0.7 mg/dL (0.6-1.3); POTASSIUM 3.8 mmol/L (3.5-5.1)
[2021-12-08 14:30] LABS: ALBUMIN 4.1 g/dL (3.4-5.0); BILIRUBIN,TOTAL 0.7 mg/dL (0.2-1.0); TOTAL PROTEIN, SERUM 8.1 g/dL (6.4-8.2)
[2021-12-08] MEDS ORDERED: LIDOCAINE VISCOUS 2% UD 15 ML UDC MM ONE (14:30)
[2021-12-08] MEDS ORDERED: MAG HYDROX/AL HYDROX/SIMETH 30 ML UDC PO ONE (14:30)
[2021-12-08 14:41] LABS: BILIRUBIN,DIRECT 0.3 mg/dL (0.0-0.2)
[2021-12-08] MEDS ORDERED: PANT20TA2 PO (15:32)
--- NOTE | 2021-12-08 16:14 | NUR ---
Patient discharged to home in stable condition. Written and verbal after care instructions given. Patient verbalizes understanding of instruction.
[2021-12-08 16:15] VITALS: BP 138/99
== END 2021-12-08 16:15 | disposition home or self-care (01) ==
LOC: ER 11:24
DX: R10.13 Epigastric pain (principal); F10.10 Alcohol abuse, uncomplicated; I10 Essential (primary) hypertension; F17.200 Nicotine dependence, unspecified, uncomplicated; Z60.2 Problems related to living alone; Y90.9 Presence of alcohol in blood, level not specified
CPT/HCPCS: 36415; 80048-TC; 80076-TC; 83690-TC; 85025-TC

== ENCOUNTER 2022-02-08 11:49 | Emergency (ER) | payer MEDICAID ==
[~2022-02-08] VITALS: Ht 160 cm; Wt 68.0 kg
[~2022-02-08 11:49] MED LIST changes: -CHLO25CA22 PO; -FOLI1TAB16 PO; +PANT20TA2 PO; -THIA100T13 PO
--- NOTE | 2022-02-08 11:59 | NUR ---
CALLED IN TRIAGE, NOT IN THE WAITING ROOM
--- NOTE | 2022-02-08 12:02 | NUR ---
BIB SELF C/O RLE PAIN x 4 DAYS, DENIES TRAUMA, TO ER BED 11, HOOEKD TO MONITOR, CHANGED TO HOSP GOWN, NOTED W SWOLLEN SCROTUM, WARM BLANKET PROVIDED, PATIENT AAO x 4. BREATHING EVEN AND UNLABORED. AWAITING MD SANDOVAL
--- NOTE | 2022-02-08 12:28 | NUR ---
DR CAMARGO AT BEDSIDE
[2022-02-08] MEDS ORDERED: IBUPROFEN 600 MG TABLET ONE (12:36)
--- NOTE | 2022-02-08 12:45 | NUR ---
X RAY AT BEDSIDE
[2022-02-08] MEDS ORDERED: IBUPROFEN 600 MG TABLET PO ONE (13:00)
--- NOTE | 2022-02-08 13:33 | NUR ---
PROVIDED BED SIDE URINAL, VOID 3 X'S AT THIS TIME SINCE ARRIVAL
[2022-02-08 13:59] VITALS: BP 138/76
== END 2022-02-08 14:09 | disposition home or self-care (01) ==
LOC: ER 11:49
DX: M25.561 Pain in right knee (principal); K40.91 Unilateral inguinal hernia, without obstruction or gangrene, recurrent; I10 Essential (primary) hypertension; F17.200 Nicotine dependence, unspecified, uncomplicated; Z86.79 Personal history of other diseases of the circulatory system; Z79.899 Other long term (current) drug therapy
CPT/HCPCS: 73564-TC

== ENCOUNTER 2022-06-16 08:36 | Emergency (ER) | payer MEDICAID, OTHER ==
[~2022-06-16] VITALS: Ht 160 cm; Wt 68.0 kg
--- NOTE | 2022-06-16 09:00 | NUR ---
BIBS W/ C/O RLE pain x6 months. PT A/O X4, NAD. TO ER BED 15.
[2022-06-16] MEDS ORDERED: IBUPROFEN 400 MG TABLET PO ONE (09:30)
[2022-06-16] MEDS ORDERED: IBUPROFEN 400 MG TABLET ONE (09:32)
[2022-06-16 10:23] LABS: BASOPHILS # (AUTO) 0.1 K/uL (0.0-0.2); BASOPHILS % (AUTO) 0.9 % (0.0-2.0); EOSINOPHILS % (AUTO) 5.3 % (0.0-6.0); HEMATOCRIT 37 % (39-51); HEMOGLOBIN 12.6 g/dL (13.5-17.5); LYMPHOCYTES # (AUTO) 2.1 K/uL (0.8-4.8); LYMPHOCYTES % (AUTO) 30.6 % (20.0-44.0); MEAN CORPUSCULAR HGB CONC 34 g/dl (31.0-36.0); MEAN CORPUSCULAR VOLUME 98 fL (80-96); MONOCYTES # (AUTO) 0.5 K/uL (0.1-1.30); MONOCYTES % (AUTO) 7.4 % (2.0-12.0); NEUTROPHILS # (AUTO) 3.8 K/uL (1.8-8.9); NEUTROPHILS % (AUTO) 55.8 % (43.0-81.0); PLATELET COUNT (AUTO) 223 K/uL (150-450); RED BLOOD CELL COUNT(AUTO) 3.74 MIL/uL (4.5-6.0); WHITE BLOOD COUNT (AUTO) 6.8 K/uL (4.3-11.0)
[2022-06-16 10:45] LABS: CALCIUM, SERUM 8.6 mg/dL (8.5-10.1); CREATININE 0.6 mg/dL (0.6-1.3); POTASSIUM 3.8 mmol/L (3.5-5.1)
[2022-06-16 10:51] LABS: ALBUMIN 3.6 g/dL (3.4-5.0); BILIRUBIN,TOTAL 0.3 mg/dL (0.2-1.0); TOTAL PROTEIN, SERUM 7.7 g/dL (6.4-8.2)
--- NOTE | 2022-06-16 10:52 | NUR ---
CALLED DR. GARSIA [phone] WILL BE PAGED. PER RABIA
[2022-06-16] MEDS ORDERED: APIX5TAB PO (11:35)
[2022-06-16] MEDS ORDERED: APIXABAN 5 MG TABLET ONE (11:52)
--- NOTE | 2022-06-16 11:55 | NUR ---
ELIQUIS 10MG PO GIVEN INDICATED, TAKEN WELL.
[2022-06-16] MEDS ORDERED: APIXABAN 5 MG TABLET PO SCH (12:00)
--- NOTE | 2022-06-16 12:00 | NUR ---
Patient discharged to home in stable condition. Written and verbal after care instructions given. Patient verbalizes understanding of instruction.
[2022-06-16 12:01] VITALS: BP 120/74
== END 2022-06-16 12:04 | disposition home or self-care (01) ==
LOC: ER 08:40
DX: I82.401 Acute embolism and thrombosis of unspecified deep veins of right lower extremity (principal); M25.561 Pain in right knee; I10 Essential (primary) hypertension; F17.200 Nicotine dependence, unspecified, uncomplicated; Z60.2 Problems related to living alone; Z79.01 Long term (current) use of anticoagulants
CPT/HCPCS: 36415; 73502; 73564-TC; 80053-TC; 85025-TC; 85730-TC; 93971-TC

== ENCOUNTER 2022-07-19 11:10 | Emergency (ER) | payer SELFPAY ==
[~2022-07-19 11:10] MED LIST changes: +APIX5TAB PO
--- NOTE | 2022-07-19 11:37 | NUR ---
called for triage not in the waiting room.
[2022-07-20] MEDS ORDERED: OXYC-128 PO (04:09)
== END 2022-07-19 11:49 | disposition home or self-care (01) ==
LOC: ER 11:35
DX: Z53.21 Procedure and treatment not carried out due to patient leaving prior to being seen by health care provider (principal)

== ENCOUNTER 2022-07-19 22:36 | Emergency (ER) | payer OTHER ==
[~2022-07-19] VITALS: Ht 157.5 cm; Wt 66.2 kg
--- NOTE | 2022-07-19 22:50 | NUR ---
BIBS FOR POSSIBLE INFECTED SX SITE ON R LOWER ABDOMEN (R HERNIA) ADMITTED ON ALCOHOL DRINKING. PATIENT IS AAOX4. JAPANESE SPEAKING. GUARDING HIS ABDOMEN WHEN HE WALKS. PLACED COMFORTABLY IN BED. VITALS CHECKE.D
--- NOTE | 2022-07-19 23:15 | NUR ---
IV CANNULA G18 INSERTED ON LEFT FA.
--- NOTE | 2022-07-19 23:30 | NUR ---
ER COMPUTER NUMERICAL CONTROL OPERATOR AT BEDSIDE
[2022-07-19 23:39] LABS: BASOPHILS # (AUTO) 0.2 K/uL (0.0-0.2); BASOPHILS % (AUTO) 2.6 % (0.0-2.0); EOSINOPHILS % (AUTO) 5.9 % (0.0-6.0); HEMATOCRIT 31 % (39-51); HEMOGLOBIN 10.9 g/dL (13.5-17.5); LYMPHOCYTES # (AUTO) 2.8 K/uL (0.8-4.8); LYMPHOCYTES % (AUTO) 41.3 % (20.0-44.0); MEAN CORPUSCULAR HGB CONC 35 g/dl (31.0-36.0); MEAN CORPUSCULAR VOLUME 98 fL (80-96); MONOCYTES # (AUTO) 0.6 K/uL (0.1-1.30); MONOCYTES % (AUTO) 8.4 % (2.0-12.0); NEUTROPHILS # (AUTO) 2.9 K/uL (1.8-8.9); NEUTROPHILS % (AUTO) 41.8 % (43.0-81.0); PLATELET COUNT (AUTO) 351 K/uL (150-450); RED BLOOD CELL COUNT(AUTO) 3.19 MIL/uL (4.5-6.0); WHITE BLOOD COUNT (AUTO) 6.8 K/uL (4.3-11.0)
[2022-07-20 00:08] LABS: CALCIUM, SERUM 8.6 mg/dL (8.5-10.1); CREATININE 0.8 mg/dL (0.6-1.3); POTASSIUM 3.8 mmol/L (3.5-5.1)
--- NOTE | 2022-07-20 00:23 | NUR ---
PT TO CT VIA MARLYS
[2022-07-20] MEDS ORDERED: CT SWABBABLE VALVE TRANS SET 1 EA INFUS.SET MC ONE (00:26)
[2022-07-20] MEDS ORDERED: IOHEXOL-300 100 ML VIAL IV ONE (00:26)
[2022-07-20] MEDS ORDERED: IV NS 0.9% 250 ML IV ONE (00:26)
--- NOTE | 2022-07-20 00:26 | NUR ---
PT WHEELED TO CT DEPT
--- NOTE | 2022-07-20 00:42 | NUR ---
PT RETURNED TO ER BED [address]
--- NOTE | 2022-07-20 01:46 | NUR ---
RECEIVED CALL FROM [facility]. CALL IS BEING DIVERTED TO DR HOWARD.
[2022-07-20] MEDS ORDERED: OXYC-128 PO (04:09)
[2022-07-20] MEDS ORDERED: HYDROCODONE/APAP 5/325MG TABLET ONE (04:23)
[2022-07-20] MEDS: HYDROCODONE/APAP 5/325MG TABLET PO ONE (04:25)
--- NOTE | 2022-07-20 05:06 | NUR ---
IV CANNULA REMOVED
--- NOTE | 2022-07-20 05:07 | NUR ---
Patient discharged to home in stable condition. Written and verbal after care instructions given. Patient verbalizes understanding of instruction.
[2022-07-20 05:08] VITALS: BP 125/86
== END 2022-07-20 05:08 | disposition home or self-care (01) ==
LOC: ER 22:37
DX: K91.871 Postprocedural hematoma of a digestive system organ or structure following other procedure (principal); I10 Essential (primary) hypertension; Z60.2 Problems related to living alone
CPT/HCPCS: 99285; 74177; 85025; 80048; 36415; 76870; J7050; Q9967